=== PATIENT | male | born 1975 | race American Indian/Alaskan Native ===

== ENCOUNTER 2017-01-07 14:58 | Inpatient (IN) | payer MEDICAID ==
[2017-01-08] MEDS ORDERED: VALIUM IV ONE (01:06)
--- NOTE | 2017-01-08 01:06 | Emergency Department Report ---
ED ENT HPI - General Chief complaint: Sore Throat Stated complaint: THROAT PAIN Time Seen by Provider: 01/08/17 01:05 Source: patient Mode of arrival: Ambulatory Limitations: No Limitations - History of Present Illness Initial comments: 41-year-old male past medical history HIV on HAART, pseudo-diverticula esophagus , esophageal strictures presents with complaint of inability to swallow food or liquid for the last 3 days. Patient states this feels like prior episodes of esophageal stricture for which she required endoscopies and dilations of his esophagus. Patient has records of his prior endoscopies on him which he is showing me. Patient denies any nausea no dyspnea denies any chest pain simply states that he cannot tolerate swallowing any liquid or food. Denies any fever or chills and states he has had difficulty swallowing his HIV medicines MD complaint: sore throat Onset/Timin -: days(s) Severity scale (0 -10): 6 Consistency: constant Worsens with: swallowing - Related Data Allergies Allergy/AdvReac Type Severity Reaction Status Date / Time No Known Allergies Allergy Verified 01/07/17 16:11 ED Dental HPI - General Chief complaint: Sore Throat Stated complaint: THROAT PAIN Time Seen by Provider: 01/08/17 01:05 Source: patient Mode of arrival: Ambulatory Limitations: No Limitations - Related Data Allergies Allergy/AdvReac Type Severity Reaction Status Date / Time No Known Allergies Allergy Verified 01/07/17 16:11 ED Review of Systems ROS: Stated complaint: THROAT PAIN Other details as noted in HPI Constitutional: denies: chills, fever Eyes: denies: eye pain, eye discharge, vision change ENT: denies: ear pain, throat pain Respiratory: denies: cough, shortness of breath, wheezing Cardiovascular: denies: chest pain, palpitations Endocrine: no symptoms reported Gastrointestinal: other (esophageal strictures). denies: abdominal pain, nausea , diarrhea Genitourinary: denies: urgency, dysuria Musculoskeletal: denies: back pain, joint swelling, arthralgia Skin: denies: rash, lesions Neurological: denies: headache, weakness, paresthesias Psychiatric: denies: anxiety, depression Hematological/Lymphatic: denies: easy bleeding, easy bruising ED Past Medical Hx - Past Medical History Additional medical history: pseudodiverticulae, esophageal dysphagia - Surgical History Past Surgical History?: No - Social History Smoking Status: Never Smoker Substance Use Type: None ED Physical Exam - General Limitations: No Limitations General appearance: alert, in no apparent distress - Head Head exam: Present: atraumatic, normocephalic - Eye Eye exam: Present: normal appearance - ENT ENT exam: Present: normal exam, normal orophraynx, mucous membranes moist - Neck Neck exam: Present: normal inspection - Respiratory Respiratory exam: Present: normal lung sounds bilaterally. Absent: respiratory distress - Cardiovascular Cardiovascular Exam: Present: regular rate, normal rhythm. Absent: systolic murmur, diastolic murmur, rubs, gallop - GI/Abdominal GI/Abdominal exam: Present: soft, normal bowel sounds - Rectal Rectal exam: Present: deferred - Extremities Exam Extremities exam: Present: normal inspection - Back Exam Back exam: Present: normal inspection - Neurological Exam Neurological exam: Present: alert, oriented X3 - Psychiatric Psychiatric exam: Present: normal affect, normal mood - Skin Skin exam: Present: warm, dry, intact, normal color. Absent: rash ED Course Vital Signs 01/07/17 01/08/17 16:13 00:32 Temperature 98.6 F 98.0 F Pulse Rate 116 H 91 H Respiratory 16 18 Rate Blood Pressure 121/95 Blood Pressure 133/99 [Right] O2 Sat by Pulse 99 100 Oximetry ED Medical Decision Making - Lab Data Result diagrams: 01/08/17 02:09 01/08/17 02:09 - Medical Decision Making A/P: dyphagia 1-case discussed with Dr. Bueno, I called Dr. Navarro of on-call gastroenterology, as patient cannot tolerate by mouth challenge will give IV hydration and admit for urgent endoscopy, case discussed with hospitalist 2-patient understands that we he will be admitted for IV hydration and urgent endoscopy GI to consult 3-Dr. Bueno updated for admission Critical care attestation.: If time is entered above; I have spent that time in minutes in the direct care of this critically ill patient, excluding procedure time. ED Disposition Clinical Impression: Dysphagia Disposition: OP ADMITTED IP TO THIS HOSP Is pt being admited?: Yes Does the pt Need Aspirin: No Condition: Stable Referrals: PRIMARY CARE,MD [Primary Care Provider] - 3-5 Days
[2017-01-08] MEDS ORDERED: LIDOCAINE VISCOUS 2% PO ONE (01:07)
[2017-01-08] MEDS ORDERED: ALUM-MAG HYDROX-SIMETH 200-200-20MG/5ML PO ONE (01:07)
[2017-01-08] MEDS ORDERED: ZOFRAN IV ONE (01:07)
[2017-01-08] MEDS ORDERED: LACTATED RINGERS 1,000 ML IV SCH (02:00)
[2017-01-08 02:22] LABS: Hematocrit 44.4 % (35.5-45.6); Hemoglobin 14.6 gm/dl (11.8-15.2); Mean Corpuscular HGB Conc 33 % (32-34); Mean Corpuscular Hemoglobin 30 pg (28-32); Mean Corpuscular Volume 92 fl (84-94); Platelet Count 199 K/mm3 (140-440); Red Blood Count 4.83 M/mm3 (3.65-5.03); Red Cell Distribution Width 13.7 % (13.2-15.2); White Blood Count 5.4 K/mm3 (4.5-11.0)
[2017-01-08 02:33] LABS: Anion Gap 17 mmol/L; BUN/Creatinine Ratio 13.75; Blood Urea Nitrogen 11 mg/dL (9-20); Calcium 8.4 mg/dL (8.4-10.2); Carbon Dioxide 26 mmol/L (22-30); Glucose 91 mg/dL (75-100); Potassium 3.9 mmol/L (3.6-5.0); Sodium 139 mmol/L (137-145)
[2017-01-08 03:24] LABS: Basophils % (Manual) 0 % (0.0-1.8); Blastocytes % (Manual) 0 %; Diff Status Complete; Platelet Estimate Consistent w Auto; RBC Morphology Normal
[2017-01-08] MEDS ORDERED: D5NS 1,000 ML IV SCH (04:00)
--- NOTE | 2017-01-08 08:08 | History and Physical Report ---
History of Present Illness Date of examination: 01/08/17 Date of admission: 01/08/17 04:10 History of present illness: 41-year-old male past medical history HIV on HAART, pseudo-diverticula esophagus , esophageal strictures presents with complaint of inability to swallow food or liquid for the last 3 days. Patient states this feels like prior episodes of esophageal stricture for which she required endoscopies and dilations of his esophagus. Patient has records of his prior endoscopies on him which he is showing me. Patient denies any nausea no dyspnea denies any chest pain simply states that he cannot tolerate swallowing any liquid or food. Denies any fever or chills and states he has had difficulty swallowing his HIV medicines Past History Past Medical History: GERD, HIV/AIDS Medications and Allergies Allergies Allergy/AdvReac Type Severity Reaction Status Date / Time No Known Allergies Allergy Verified 01/07/17 16:11 Home Medications Medication Instructions Recorded Confirmed Last Taken Type ALPRAZolam [Xanax TAB] 2 mg PO TID PRN 01/08/17 01/08/17 01/07/17 History [place] Carbonate [Eskalith] 200 mg PO DAILY 01/08/17 01/08/17 01/07/17 History QUEtiapine [SEROquel] 200 mg PO DAILY 01/08/17 01/08/17 01/07/17 History Sertraline [Zoloft] 100 mg PO BID 01/08/17 01/08/17 01/07/17 History buPROPion [Wellbutrin] 200 mg PO DAILY 01/08/17 01/08/17 01/07/17 History Active Meds: Active Medications Dextrose/Sodium Chloride (D5ns) 1,000 mls @ 150 mls/hr IV DIRECT MARCIANO Review of Systems Gastrointestinal: nausea, vomiting Exam - Constitutional Vitals: Temp Pulse Resp BP Pulse Ox 98.0 F 74 17 94/56 97 01/08/17 00:32 01/08/17 06:00 01/08/17 06:00 01/08/17 06:00 01/08/17 06:00 General appearance: Present: no acute distress - EENT Eyes: Present: PERRL, EOM intact ENT: hearing intact, clear oral mucosa - Neck Neck: Present: supple, normal ROM - Respiratory Respiratory effort: normal Respiratory: bilateral: CTA - Cardiovascular Rhythm: regular Heart Sounds: Present: S1 & S2 - Abdominal General gastrointestinal: Present: soft, tender, non-distended, normal bowel sounds Localized gastrointestinal: tender: epigastric periumbilical - Musculoskeletal Musculoskeletal: strength equal bilaterally - Psychiatric Psychiatric: appropriate mood/affect, intact judgment & insight - Neurologic Neurologic: CNII-XII intact, moves all extremities Results - Labs CBC & Chem 7: 01/08/17 02:09 01/08/17 02:09 Labs: Laboratory Last Values WBC 5.4 K/mm3 (4.5-11.0) 01/08/17 02:09 RBC 4.83 M/mm3 (3.65-5.03) 01/08/17 02:09 Hgb 14.6 gm/dl (11.8-15.2) 01/08/17 02:09 Hct 44.4 % (35.5-45.6) 01/08/17 02:09 MCV 92 fl (84-94) 01/08/17 02:09 MCH 30 pg (28-32) 01/08/17 02:09 MCHC 33 % (32-34) 01/08/17 02:09 RDW 13.7 % (13.2-15.2) 01/08/17 02:09 Plt Count 199 K/mm3 (140-440) 01/08/17 02:09 [place] % (Auto) [employer] 01/08/17 02:09 Add Manual Diff Complete 01/08/17 02:09 Total Counted 100 01/08/17 02:09 Seg Neuts % (Manual) 46.0 % (40.0-70.0) 01/08/17 02:09 Band Neutrophils % 0 % 01/08/17 02:09 Lymphocytes % (Manual) 32.0 % (13.4-35.0) 01/08/17 02:09 Reactive Lymphs % (Man) 0 % 01/08/17 02:09 Monocytes % (Manual) 19.0 % (0.0-7.3) H 01/08/17 02:09 Eosinophils % (Manual) 3.0 % (0.0-4.3) 01/08/17 02:09 Basophils % (Manual) 0 % (0.0-1.8) 01/08/17 02:09 Metamyelocytes % 0 % 01/08/17 02:09 Myelocytes % 0 % 01/08/17 02:09 Promyelocytes % 0 % 01/08/17 02:09 Blast Cells % 0 % 01/08/17 02:09 Nucleated RBC % Not Reportable 01/08/17 02:09 Seg Neutrophils # Man 2.5 K/mm3 (1.8-7.7) 01/08/17 02:09 Band Neutrophils # 0.0 K/mm3 01/08/17 02:09 Lymphocytes # (Manual) 1.7 K/mm3 (1.2-5.4) 01/08/17 02:09 Abs React Lymphs (Man) 0.0 K/mm3 01/08/17 02:09 Monocytes # (Manual) 1.0 K/mm3 (0.0-0.8) H 01/08/17 02:09 Eosinophils # (Manual) 0.2 K/mm3 (0.0-0.4) 01/08/17 02:09 Basophils # (Manual) 0.0 K/mm3 (0.0-0.1) 01/08/17 02:09 Metamyelocytes # 0.0 K/mm3 01/08/17 02:09 Myelocytes # 0.0 K/mm3 01/08/17 02:09 Promyelocytes # 0.0 K/mm3 01/08/17 02:09 Blast Cells # 0.0 K/mm3 01/08/17 02:09 WBC Morphology Not Reportable 01/08/17 02:09 Hypersegmented Neuts Not Reportable 01/08/17 02:09 Hyposegmented Neuts Not Reportable 01/08/17 02:09 Hypogranular Neuts Not Reportable 01/08/17 02:09 Smudge Cells Not Reportable 01/08/17 02:09 Toxic Granulation Not Reportable 01/08/17 02:09 Toxic Vacuolation Not Reportable 01/08/17 02:09 Dohle Bodies Not Reportable 01/08/17 02:09 Pelger-Huet Anomaly Not Reportable 01/08/17 02:09 Alejandra Rods Not Reportable 01/08/17 02:09 Platelet Estimate Consistent w auto 01/08/17 02:09 Clumped Platelets Not Reportable 01/08/17 02:09 Plt Clumps, EDTA Not Reportable 01/08/17 02:09 Large Platelets Not Reportable 01/08/17 02:09 Giant Platelets Not Reportable 01/08/17 02:09 Platelet Satelliting Not Reportable 01/08/17 02:09 Plt Morphology Comment Not Reportable 01/08/17 02:09 RBC Morphology Normal 01/08/17 02:09 Dimorphic RBCs Not Reportable 01/08/17 02:09 Polychromasia Not Reportable 01/08/17 02:09 Hypochromasia Not Reportable 01/08/17 02:09 Poikilocytosis Not Reportable 01/08/17 02:09 Anisocytosis Not Reportable 01/08/17 02:09 Microcytosis Not Reportable 01/08/17 02:09 Macrocytosis Not Reportable 01/08/17 02:09 Spherocytes Not Reportable 01/08/17 02:09 Pappenheimer Bodies Not Reportable 01/08/17 02:09 Sickle Cells Not Reportable 01/08/17 02:09 Target Cells Not Reportable 01/08/17 02:09 Tear Drop Cells Not Reportable 01/08/17 02:09 Ovalocytes Not Reportable 01/08/17 02:09 Helmet Cells Not Reportable 01/08/17 02:09 [place] Bodies Not Reportable 01/08/17 02:09 [place] Rings Not Reportable 01/08/17 02:09 [place] Cells Not Reportable 01/08/17 02:09 Bite Cells Not Reportable 01/08/17 02:09 Crenated Cell Not Reportable 01/08/17 02:09 Elliptocytes Not Reportable 01/08/17 02:09 Acanthocytes (Spur) Not Reportable 01/08/17 02:09 Rouleaux Not Reportable 01/08/17 02:09 Hemoglobin C Crystals Not Reportable 01/08/17 02:09 Schistocytes Not Reportable 01/08/17 02:09 Malaria parasites Not Reportable 01/08/17 02:09 [place] Bodies Not Reportable 01/08/17 02:09 Hem Pathologist Commnt No 01/08/17 02:09 Sodium 139 mmol/L (137-145) 01/08/17 02:09 Potassium 3.9 mmol/L (3.6-5.0) 01/08/17 02:09 Chloride 100.0 mmol/L (98-107) 01/08/17 02:09 Carbon Dioxide 26 mmol/L (22-30) 01/08/17 02:09 Anion Gap 17 mmol/L 01/08/17 02:09 BUN 11 mg/dL (9-20) 01/08/17 02:09 Creatinine 0.8 mg/dL (0.8-1.5) 01/08/17 02:09 Estimated GFR > 60 ml/min 01/08/17 02:09 BUN/Creatinine Ratio 13.75 % 01/08/17 02:09 Glucose 91 mg/dL (75-100) 01/08/17 02:09 Calcium 8.4 mg/dL (8.4-10.2) 01/08/17 02:09 Assessment and Plan - Patient Problems (1) HIV (human immunodeficiency virus infection) Current Visit: Yes Status: Acute Plan to address problem: We'll get infectious disease consult. (2) Esophageal stricture Current Visit: Yes Status: Acute Plan to address problem: Patient has a history of esophageal strictures when he was in [facility]. Patient has history of dysphagia now. We'll get GI involvement to determine whether the strictures have recurred. (3) Dysphagia Current Visit: Yes Status: Acute Qualifiers: Dysphagia type: D Plan to address problem: Unsure of etiology possibly related to HIV. We'll get GI evaluation to determine whether this is fungal or viral in origin. (4) Nausea & vomiting Current Visit: Yes Status: Acute Qualifiers: Vomiting type: V Vomiting Intractability: V Plan to address problem: Patient was given Zofran and nausea and vomiting is much improved
[2017-01-08] MEDS ORDERED: MILK OF MAGNESIA PO PRN (08:09)
[2017-01-08] MEDS ORDERED: TYLENOL PO PRN (08:09)
[2017-01-08] MEDS ORDERED: DULCOLAX PR PRN (08:09)
[2017-01-08] MEDS ORDERED: NON-FORMULARY (Alprazolam [Xanax Tab] 2 MG) PO PRN (08:11)
[2017-01-08] MEDS ORDERED: ZOFRAN IV PRN (09:00)
[2017-01-08] MEDS ORDERED: XANAX PO PRN (09:00)
[2017-01-08] MEDS ORDERED: ESKALITH PO SCH (10:00)
[2017-01-08] MEDS ORDERED: WELLBUTRIN PO SCH (10:00)
[2017-01-08] MEDS ORDERED: LOVENOX SUB-Q SCH (10:00)
[2017-01-08] MEDS: ZOLOFT PO SCH ×2 (11:30→21:54)
[2017-01-08] MEDS: LOVENOX SUB-Q SCH (11:48)
[2017-01-08] MEDS: D5NS 1,000 ML IV SCH ×2 (11:48→20:23)
[2017-01-08] MEDS: WELLBUTRIN XL PO SCH (14:49)
[2017-01-08] MEDS ORDERED: ATIVAN IV PRN (15:34)
--- NOTE | 2017-01-08 17:44 | Consultation ---
History of Present Illness - Reason for Consult Consult date: 01/08/17 Odynophagia - History of Present Illness See Dictation. Past History Past Medical History: GERD, HIV/AIDS Medications and Allergies Allergies Allergy/AdvReac Type Severity Reaction Status Date / Time No Known Allergies Allergy Verified 01/07/17 16:11 Home Medications Medication Instructions Recorded Confirmed Last Taken Type ALPRAZolam [Xanax TAB] 2 mg PO BID PRN 01/08/17 01/08/17 01/07/17 History [place] Carbonate [Eskalith] 900 mg PO QHS 01/08/17 01/08/17 01/07/17 History QUEtiapine [SEROquel] 800 mg PO BID 01/08/17 01/08/17 01/07/17 History buPROPion [Wellbutrin] 300 mg PO DAILY 01/08/17 01/08/17 01/07/17 History risperiDONE [RisperDAL] 2 mg PO QHS 01/08/17 01/08/17 Unknown History Active Meds: Active Medications Acetaminophen (Tylenol) 650 mg PO Q4H PRN PRN Reason: Pain MILD(1-3)/Fever >100.5/LOERA Alprazolam (Xanax) 2 mg PO BID PRN PRN Reason: Anxiety Bisacodyl (Dulcolax) 10 mg DC QDAY PRN PRN Reason: Constipation unrelieved by MOM Bupropion HCl (Wellbutrin Xl) 300 mg PO DAILY MARCIANO Last Admin: 01/08/17 14:49 Dose: Not Given Enoxaparin Sodium (Lovenox) 40 mg SUB-Q QDAY@1000 MARCIANO Last Admin: 01/08/17 11:48 Dose: 40 mg Dextrose/Sodium Chloride (D5ns) 1,000 mls @ 150 mls/hr IV DIRECT MARCIANO Last Admin: 01/08/17 11:48 Dose: 150 mls/hr Fluconazole (Diflucan) 100 mls @ 100 mls/hr IV ONCE ONE Stop: 01/08/17 18:38 Fluconazole (Diflucan/Ns 100 Mg/50 Ml) 50 mls @ 50 mls/hr IV Q24HR MARCIANO [place] Carbonate (Eskalith) 900 mg PO QHS MARCIANO Lorazepam (Ativan) 1 mg IV Q8HR PRN PRN Reason: Agitation Last Admin: 01/08/17 16:00 Dose: 1 mg Magnesium Hydroxide (Milk Of Magnesia) 30 ml PO Q4H PRN PRN Reason: Constipation Quetiapine Fumarate (Seroquel) 800 mg PO BID MARCIANO Risperidone (Risperdal) 2 mg PO QHS MARCIANO Sertraline HCl (Zoloft) 100 mg PO BID MARCIANO Last Admin: 01/08/17 11:30 Dose: Not Given Exam - Constitutional Vitals: Temp Pulse Resp BP Pulse Ox 98.5 F 74 18 116/77 100 01/08/17 14:45 01/08/17 14:45 01/08/17 14:45 01/08/17 14:45 01/08/17 14:45 Results - Labs CBC & Chem 7: 01/08/17 02:09 01/08/17 02:09 Assessment and Plan Pt with HIV, off meds for several months, per sister, adm with sev day hx of odynophagia and N/V. Spoke with pt's sister. Pt has hx of Jia esophagitis in past with similar symptoms, and a hx of distal esophageal stenosis, last dilated 06/16/16 to 45Fr. - ID consult (pt missed outpt appt with them recently) - empiric Diflucan - EGD in 1-2 days.
[2017-01-08] MEDS: ESKALITH PO SCH (21:53)
[2017-01-08] MEDS: RisperDAL PO SCH (21:54)
[2017-01-08] MEDS ORDERED: DIFLUCAN 200 MG/100 ML BAG IV ONE (22:00)
--- NOTE | 2017-01-09 00:05 | Admit Criteria Form ---
Admission Criteria Documentation: NEUROLOGY GRG Clinical Indications for Admission to Inpatient Care (Place ' X' for any and all applicable criteria): Hospital admission is needed for appropriate care of the patient because of ANY ONE of the following: [ ]I. New-onset or worsening altered mental status remaining after emergency or observation level care (as appropriate) (9)(10)(11) [ ]II. Severe C[employer]ER [employer]IENCE STRATEGIST infections or inflammatory conditions, including ANY ONE of the following(1)(2)(3): [ ]a) Intracranial abscess [ ]b) Spinal abscess or myelitis [ ]c) Tuberculous or other nonbacterial, nonviral CUST[employer]ER [employer]PERIENCE STRATEGIST infection(8) [ ]III. Encephalitis(1)(2)(3) [ ]IV. Status epilepticus or repetitive seizures not controlled with emergent treatment [A] (7)(8) [ ]V. Transient alteration in consciousness with high-risk etiology; examples include (12)(13): [ ]a) Cardiovascular source [ ]b) Cataplexy [ ]. Cerebral aneurysm requiring ANY ONE of the following(14): [ ]a) IV antihypertensives or vasoactive agents [ ]b) Sedation and analgesia for suspected leak [ ]c) Need for external ventricular drainage and cerebral perfusion pressure monitoring [ ]d) Emergent evaluation to determine need for surgical clipping or endovascular coiling by interventional radiology. If surgery is required ( Also use Craniotomy, Supratentorial, for Surgery of Bleeding Intracranial Aneurysm (for bleeding aneurysm) or Craniotomy, Supratentorial (for nonbleeding aneurysm) as appropriate. [ ]VII. Altered mental status that is severe or persistent(16) [ ]VIII New-onset severe neurologic findings requiring inpatient care; examples include: [ ]a) Papilledema [ ]b) Cerebral edema [ ]c) Mass effect on imaging [ ]IX. New-onset severe neurologic symptom requiring inpatient care indicated by ANY ONE of the following: [ ]a) Aphasia(15) [ ]b) Weakness (grade 3 or less) [ ]c) Paralysis (eg, hemiplegia) [ ]d) Spasticity(16) [ ]e) Ataxia(17) [ ]f) Amnesia(18) [ ]g) Involuntary movements(19) [ ]h) Vertigo [ ]i) Other severe neurologic symptom not treatable at alternative level of care (eg, observation care) [ ]X. Guillain-[place] syndrome(20) [ ]XI. Myasthenia gravis crisis or inpatient monitoring need as indicated by ANY ONE of the following(21): [ ]a) Inadequate airway protection [ ]b) Respiratory insufficiency requiring intubation or inpatient. monitoring [ ]c) Progressive dysphagia with failure to thrive [ ]d) Intensive treatment (eg, course of plasmapheresis) with inadequate outpatient situation to monitor patients status [ ]XII. Multiple sclerosis or other acute demyelinating disease requiring inpatient care as indicated by ANY ONE of the following (22)(23): [ ]a) Acute severe deterioration requiring inpatient treatment (eg, IV steroids, plasmapheresis, close observation) [ ]b) Acute complication requiring inpatient care (eg, sepsis, severe decubitus, aspiration) [ ]XIII. Intracranial hypertension (eg, pseudotumor cerebri) requiring inpatient care (eg, acute visual loss, inadequate oral intake) (24) [ ]XIV.Parkinson disease requiring inpatient care (Also use Optimal Recovery Care Criteria or General Recovery Criteria as appropriate) indicated by ANY ONE of the following(25): [ ]a) Infection (eg, aspiration pneumonia) not treatable at alternative level of care [ ]b) Volume depletion not responsive to emergency and observation care treatment (as appropriate) [ ]c) Life-threatening agitation or psychotic behavior not treatable on emergency, observation care, or alternative level (eg, residential) basis [ ]d) Severe medication withdrawal effects (eg, freezing, neuroleptic malignant syndrome) not responsive to emergency and observation care treatment (as appropriate) [ ]e) Other severe manifestation not treatable at alternative level of care [ ]XV.Amyotrophic lateral sclerosis with inpatient care needs as indicated by ANY ONE of the following(26): [ ]a) Acute complications requiring inpatient care (Use Optimal Recovery Care Criteria or General Recovery Criteria as appropriate); examples include: [ ]i) Aspiration pneumonia [ ]ii) Sepsis [ ]b) Dehydration or hypovolemia (not responsive to emergency and observation care treatment as appropriate) AND artificial support desired [ ]c) Inadequate airway protection AND artificial support desired [ ]d) Severe ventilatory insufficiency AND artificial support desired [X ]XVI.Severe myopathy, neuropathy, or other neuromuscular disease as indicated by ANY ONE of the following: [ ]a) New-onset severe diffuse weakness (eg, strength 3/5 or less) [ X]b) Severe dysphagia [ ]c) Dyspnea at rest or with minimal exertion (new) [ ]d) Inadequate airway protection [ ]e) Inadequate ventilation as indicated by ANY ONE of the following : [ ]i) Partial pressure of carbon dioxide greater than 44 mm Hg (5.9 kPa) (new) [ ]ii) Reduced peak expiratory flow rate (new) [ ]iii) Vital capacity less than 50% of predicted ( less than 15 mL/kg) [ ]iv) Peak inspiratory force less negative than -30 cm H20 (-2942 Pa) [ ]XVII.Complications of congenital or degenerative disease (eg, infection, seizures, dehydration, injury) not responsive to emergency and observation care treatment (as appropriate ) [C](16)(29)(30) [ ]XVIII.Suspected or confirmed nerve or muscle toxic injury, including ANY ONE of the following: [ ]a) Rhabdomyolysis(31) [ ]b) Botulism(32) [ ]c) Other severe toxin-induced sign or symptom [ ]XIX. Neurologic trauma requiring inpatient treatment (medical) indicated by ANY ONE of the following(33)(34): [ ]a) Vital signs or neurologic signs more frequently than every 4 hours [ ]b) Hyperosmolar therapy [ ]c) Respiratory monitoring [ ]d) Intracranial pressure monitoring and treatment [ ]e) Stabilization and immobilization device placement (eg, braces, body jacket) [ ]f) Intubation & mechanical ventilation for airway protection or therapeutic hyperventilation [ ]g) Other treatment or monitoring needed that requires inpatient level of care [ ]XX.Complications of neurologic devices (eg, ventricular shunt, neurostimulator) requiring ANY ONE of the following(35)(36): [ ]a) IV antibiotics with monitoring while awaiting culture results [ ]b) Monitoring for hydrocephalus [ ]XXI Vasculitis with ANY ONE of the following(4)(5): [ ]a) Altered mental status [ ]b) Psychosis [ ]c) Seizures [ ]XXII. Neurology condition and ALL of the following: [ ]a) Symptom or finding for which emergency and observation care have failed or are not considered appropriate (Use General Criteria: Observation Care as appropriate) [ ]b) Presence of ANY ONE of the following: [ ]i) A General Admission Criteria [ ]ii A Pediatric General Admission Criteria The original [facility] content created by [facility] has been revised. The portions of the content which have been revised are identified through the use of italic text or in bold, and [facility] has neither reviewed nor approved the modified material. All other unmodified content is copyright [facility] Please see references footnoted in the original [facility] edition 2016 Admission Criteria Met: Yes
[2017-01-09 06:19] LABS: Basophils % (Auto) 0.7 % (0.0-1.8); Eosinophils % (Auto) 3.5 % (0.0-4.3); Hematocrit 40.6 % (35.5-45.6); Hemoglobin 13.2 gm/dl (11.8-15.2); Mean Corpuscular HGB Conc 33 % (32-34); Mean Corpuscular Hemoglobin 30 pg (28-32); Mean Corpuscular Volume 93 fl (84-94); Platelet Count 195 K/mm3 (140-440); Red Blood Count 4.36 M/mm3 (3.65-5.03); Red Cell Distribution Width 13.3 % (13.2-15.2); White Blood Count 5.1 K/mm3 (4.5-11.0)
[2017-01-09 06:36] LABS: Alanine Aminotransferase 18 units/L (7-56); Albumin 3.3 g/dL (3.9-5); Albumin/Globulin Ratio 1.1 %; Alkaline Phosphatase 68 units/L (35-129); Anion Gap 16 mmol/L; BUN/Creatinine Ratio 8.88; Bilirubin,Total 0.4 mg/dL (0.1-1.2); Blood Urea Nitrogen 8 mg/dL (9-20); Carbon Dioxide 23 mmol/L (22-30); Chloride 105.7 mmol/L (98-107); Glucose 99 mg/dL (75-100); Potassium 3.9 mmol/L (3.6-5.0); Sodium 141 mmol/L (137-145); Total Protein 6.2 g/dL (6.3-8.2)
--- NOTE | 2017-01-09 09:18 | Consultation ---
REFERRING PHYSICIAN: Joanna Castillo MD REASON FOR CONSULTATION: Odynophagia. HISTORY OF PRESENT ILLNESS: The patient is a 41-year-old man with significant psychiatric illness as well as HIV positive. He has been off of his HIV medications for several months according to his sister. He has not been able to eat or drink for the last 3-4 days due to pain on swallowing, primarily in his throat. He was having nausea and vomiting on the day prior to admission. Because of this, he came to the Emergency Room and was admitted for management. The patient's sister states that he has had several episodes like this over the last 3 years and gets dilated on a yearly basis. 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 Loving. No Jia esophagitis was noted at that time. The patient denies fevers, chills or sweats. He has been losing weight. He had an appointment to see ID specialists over the last 1 or 2 weeks, but he missed his outpatient appointment. ALLERGIES: He has no known drug allergies. MEDICATIONS: At home, he takes Risperdal, Xanax, Seroquel, Wellbutrin, and lithium. He is not taking his HIV meds. PAST MEDICAL HISTORY: He has a history of: 1. HIV. 2. Schizophrenia. 3. Bipolar disorder. FAMILY HISTORY: Noncontributory. SOCIAL HISTORY: Negative for ethanol usage and he does not smoke. REVIEW OF SYSTEMS: Difficult to obtain as the patient keeps falling asleep in the middle of our conversation, but he denies any significant discomfort. PHYSICAL EXAMINATION: GENERAL: This is a cachectic, middle-aged black male lying in bed, in no apparent distress. VITAL SIGNS: Temperature is 98.5, pulse 74, blood pressure 116/77. HEENT: He is anicteric. Pupils are round and reactive. Oropharynx is clear with a whitish discoloration of the tongue, but no lesions noted on the roof of the mouth. LUNGS: Clear bilaterally. Clear to auscultation. CARDIOVASCULAR: Regular with no extra heart sounds. ABDOMEN: Soft with good bowel sounds and no organomegaly or tenderness to palpation. RECTAL: Deferred. EXTREMITIES: Reveal no edema. NEUROLOGIC: He is alert and oriented x3. Grossly nonfocal. LABORATORY DATA: White count is 5.4, hemoglobin 14.6, hematocrit 44.4, MCV of 92, platelet count of 199,000. Sodium is 139, potassium 2.9, chloride 100, bicarb 26, BUN 11, creatinine 0.8, glucose 91. IMPRESSION: 1. Odynophagia - this could well represent Jia. Based on patient's history, and the fact that he is HIV positive and has been off medications, I will empirically start him on Diflucan. We will plan on an upper endoscopy in the next several days. At that time, we will likely need to dilate him given his history of distal esophageal stenosis. 2. HIV positive - off medications. I would recommend Infectious Disease consultation. JOB# [id number] HRC/NTS
[2017-01-09] MEDS ORDERED: DIFLUCAN/NS 100 MG/50 ML 100 MG/50 ML BAG IV SCH (10:00)
--- NOTE | 2017-01-09 10:11 | Progress Note ---
Assessment and Plan Assessment and plan: 1. Odynophagia. GI following. Plans for upper endoscopy in 1-2 days. Continue Diflucan. Pt has hx of Jia esophagitis in past with similar symptoms, and a hx of distal esophageal stenosis, last dilated 06/16/16. 2. HIV. ID consultation pending. History Interval history: 41-year-old male past medical history HIV on HAART, pseudo-diverticula esophagus , esophageal strictures presents with complaint of inability to swallow food or liquid for the last 3 days. Hospitalist Physical - Constitutional Vitals: Temp Pulse Resp BP Pulse Ox 98.9 F 75 18 101/64 96 01/09/17 07:00 01/09/17 07:00 01/09/17 07:00 01/09/17 07:00 01/09/17 07:00 General appearance: Present: no acute distress - EENT Eyes: Present: PERRL, EOM intact ENT: hearing intact, clear oral mucosa, dentition normal - Neck Neck: Present: supple, normal ROM - Respiratory Respiratory effort: normal Respiratory: bilateral: CTA - Cardiovascular Rhythm: regular Heart Sounds: Present: S1 & S2. Absent: gallop, rub - Extremities Extremities: no ischemia, No edema, Full ROM - Abdominal General gastrointestinal: soft, non-tender, non-distended, normal bowel sounds - Integumentary Integumentary: Present: clear, warm, dry - Neurologic Neurologic: CNII-XII intact, moves all extremities Results - Labs CBC & Chem 7: 01/09/17 05:09 01/09/17 05:09 Labs: Laboratory Last Values WBC 5.1 K/mm3 (4.5-11.0) 01/09/17 05:09 RBC 4.36 M/mm3 (3.65-5.03) 01/09/17 05:09 Hgb 13.2 gm/dl (11.8-15.2) 01/09/17 05:09 Hct 40.6 % (35.5-45.6) 01/09/17 05:09 MCV 93 fl (84-94) 01/09/17 05:09 MCH 30 pg (28-32) 01/09/17 05:09 MCHC 33 % (32-34) 01/09/17 05:09 RDW 13.3 % (13.2-15.2) 01/09/17 05:09 Plt Count 195 K/mm3 (140-440) 01/09/17 05:09 Lymph % (Auto) 30.4 % (13.4-35.0) 01/09/17 05:09 [place] % (Auto) 13.6 % (0.0-7.3) H 01/09/17 05:09 Eos % (Auto) 3.5 % (0.0-4.3) 01/09/17 05:09 Baso % (Auto) 0.7 % (0.0-1.8) 01/09/17 05:09 Lymph # 1.5 K/mm3 (1.2-5.4) 01/09/17 05:09 [place] # 0.7 K/mm3 (0.0-0.8) 01/09/17 05:09 Eos # 0.2 K/mm3 (0.0-0.4) 01/09/17 05:09 Baso # 0.0 K/mm3 (0.0-0.1) 01/09/17 05:09 Add Manual Diff Complete 01/08/17 02:09 Total Counted 100 01/08/17 02:09 Seg Neutrophils % 51.8 % (40.0-70.0) 01/09/17 05:09 Seg Neuts % (Manual) 46.0 % (40.0-70.0) 01/08/17 02:09 Band Neutrophils % 0 % 01/08/17 02:09 Lymphocytes % (Manual) 32.0 % (13.4-35.0) 01/08/17 02:09 Reactive Lymphs % (Man) 0 % 01/08/17 02:09 Monocytes % (Manual) 19.0 % (0.0-7.3) H 01/08/17 02:09 Eosinophils % (Manual) 3.0 % (0.0-4.3) 01/08/17 02:09 Basophils % (Manual) 0 % (0.0-1.8) 01/08/17 02:09 Metamyelocytes % 0 % 01/08/17 02:09 Myelocytes % 0 % 01/08/17 02:09 Promyelocytes % 0 % 01/08/17 02:09 Blast Cells % 0 % 01/08/17 02:09 Nucleated RBC % Not Reportable 01/08/17 02:09 Seg Neutrophils # 2.6 K/mm3 (1.8-7.7) 01/09/17 05:09 Seg Neutrophils # Man 2.5 K/mm3 (1.8-7.7) 01/08/17 02:09 Band Neutrophils # 0.0 K/mm3 01/08/17 02:09 Lymphocytes # (Manual) 1.7 K/mm3 (1.2-5.4) 01/08/17 02:09 Abs React Lymphs (Man) 0.0 K/mm3 01/08/17 02:09 Monocytes # (Manual) 1.0 K/mm3 (0.0-0.8) H 01/08/17 02:09 Eosinophils # (Manual) 0.2 K/mm3 (0.0-0.4) 01/08/17 02:09 Basophils # (Manual) 0.0 K/mm3 (0.0-0.1) 01/08/17 02:09 Metamyelocytes # 0.0 K/mm3 01/08/17 02:09 Myelocytes # 0.0 K/mm3 01/08/17 02:09 Promyelocytes # 0.0 K/mm3 01/08/17 02:09 Blast Cells # 0.0 K/mm3 01/08/17 02:09 WBC Morphology Not Reportable 01/08/17 02:09 Hypersegmented Neuts Not Reportable 01/08/17 02:09 Hyposegmented Neuts Not Reportable 01/08/17 02:09 Hypogranular Neuts Not Reportable 01/08/17 02:09 Smudge Cells Not Reportable 01/08/17 02:09 Toxic Granulation Not Reportable 01/08/17 02:09 Toxic Vacuolation Not Reportable 01/08/17 02:09 Dohle Bodies Not Reportable 01/08/17 02:09 Pelger-Huet Anomaly Not Reportable 01/08/17 02:09 Laejandra Rods Not Reportable 01/08/17 02:09 Platelet Estimate Consistent w auto 01/08/17 02:09 Clumped Platelets Not Reportable 01/08/17 02:09 Plt Clumps, EDTA Not Reportable 01/08/17 02:09 Large Platelets Not Reportable 01/08/17 02:09 Giant Platelets Not Reportable 01/08/17 02:09 Platelet Satelliting Not Reportable 01/08/17 02:09 Plt Morphology Comment Not Reportable 01/08/17 02:09 RBC Morphology Normal 01/08/17 02:09 Dimorphic RBCs Not Reportable 01/08/17 02:09 Polychromasia Not Reportable 01/08/17 02:09 Hypochromasia Not Reportable 01/08/17 02:09 Poikilocytosis Not Reportable 01/08/17 02:09 Anisocytosis Not Reportable 01/08/17 02:09 Microcytosis Not Reportable 01/08/17 02:09 Macrocytosis Not Reportable 01/08/17 02:09 Spherocytes Not Reportable 01/08/17 02:09 Pappenheimer Bodies Not Reportable 01/08/17 02:09 Sickle Cells Not Reportable 01/08/17 02:09 Target Cells Not Reportable 01/08/17 02:09 Tear Drop Cells Not Reportable 01/08/17 02:09 Ovalocytes Not Reportable 01/08/17 02:09 Helmet Cells Not Reportable 01/08/17 02:09 Fu-[place] Bodies Not Reportable 01/08/17 02:09 [place] Rings Not Reportable 01/08/17 02:09 [place] Cells Not Reportable 01/08/17 02:09 Bite Cells Not Reportable 01/08/17 02:09 Crenated Cell Not Reportable 01/08/17 02:09 Elliptocytes Not Reportable 01/08/17 02:09 Acanthocytes (Spur) Not Reportable 01/08/17 02:09 Rouleaux Not Reportable 01/08/17 02:09 Hemoglobin C Crystals Not Reportable 01/08/17 02:09 Schistocytes Not Reportable 01/08/17 02:09 Malaria parasites Not Reportable 01/08/17 02:09 Allen Bodies Not Reportable 01/08/17 02:09 Hem Pathologist Commnt No 01/08/17 02:09 Sodium 141 mmol/L (137-145) 01/09/17 05:09 Potassium 3.9 mmol/L (3.6-5.0) 01/09/17 05:09 Chloride 105.7 mmol/L (98-107) 01/09/17 05:09 Carbon Dioxide 23 mmol/L (22-30) 01/09/17 05:09 Anion Gap 16 mmol/L 01/09/17 05:09 BUN 8 mg/dL (9-20) L 01/09/17 05:09 Creatinine 0.9 mg/dL (0.8-1.5) 01/09/17 05:09 Estimated GFR > 60 ml/min 01/09/17 05:09 BUN/Creatinine Ratio 8.88 % 01/09/17 05:09 Glucose 99 mg/dL (75-100) 01/09/17 05:09 Calcium 8.0 mg/dL (8.4-10.2) L 01/09/17 05:09 Total Bilirubin 0.4 mg/dL (0.1-1.2) 01/09/17 05:09 AST 21 units/L (5-40) 01/09/17 05:09 ALT 18 units/L (7-56) 01/09/17 05:09 Alkaline Phosphatase 68 units/L (35-129) 01/09/17 05:09 Total Protein 6.2 g/dL (6.3-8.2) L 01/09/17 05:09 Albumin 3.3 g/dL (3.9-5) L 01/09/17 05:09 Albumin/Globulin Ratio 1.1 % 01/09/17 05:09
[2017-01-09] MEDS: WELLBUTRIN XL PO SCH (10:45)
[2017-01-09] MEDS: XANAX PO PRN (10:45)
[2017-01-09] MEDS: ZOLOFT PO SCH ×2 (10:45→21:00)
[2017-01-09] MEDS: LOVENOX SUB-Q SCH (10:45)
--- NOTE | 2017-01-09 14:52 | Consultation ---
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 He describes intermittent follow with last clinic visit approximate 2 years ago in [facility]. The patient had most recently been on HAART Rxs to include Prezista, Truvada and Norvir - but he admits to poor compliance. He is unaware of his HIV viral load or T-cell counts. He was told that he would need a new "cocktail". The patient has a known documented history of jia esophagitis. He presents for admission to now with a 3 day history of dysphagia and inability to take in liquids or solids. Mr Rainey describes frequent episodes of jia esophagitis. He has had serial endoscopies over the last 13 years time. His records show a diagnosis of previous distal esophageal stenosis ( see GI evaluation). The patient's last dilatation was 06/16/16 ( records are not available to me now). His symptoms now are similar to symptoms in the past. He denies any other history of opportunistic infection and has never been told that he had any other etiology for his esophagitis other than yeast. He does describe a 20 pound weight loss but states that this has all occurred in the last 2 days. He is unaware of any fever or chills. He denies headache, blurred vision, cough , shortness of breath, abdominal pain, nausea, diarrhea, dysuria, urethral discharge, muscle or joint pain. He denies any other risk factors for HIV. He denies a history of STD, TB or hepatitis. Currently the patient is on Diflucan 100 mg IV daily Past History Past Medical History: GERD, HIV/AIDS Medications and Allergies Allergies Allergy/AdvReac Type Severity Reaction Status Date / Time No Known Allergies Allergy Verified 01/07/17 16:11 Home Medications Medication Instructions Recorded Confirmed Last Taken Type ALPRAZolam [Xanax TAB] 2 mg PO BID PRN 01/08/17 01/08/17 01/07/17 History [place] Carbonate [Eskalith] 900 mg PO QHS 01/08/17 01/08/17 01/07/17 History QUEtiapine [SEROquel] 800 mg PO BID 01/08/17 01/08/17 01/07/17 History buPROPion [Wellbutrin] 300 mg PO DAILY 01/08/17 01/08/17 01/07/17 History risperiDONE [RisperDAL] 2 mg PO QHS 01/08/17 01/08/17 Unknown History Active Meds: Active Medications Acetaminophen (Tylenol) 650 mg PO Q4H PRN PRN Reason: Pain MILD(1-3)/Fever >100.5/LOERA Alprazolam (Xanax) 2 mg PO BID PRN PRN Reason: Anxiety Last Admin: 01/09/17 10:45 Dose: 2 mg Bisacodyl (Dulcolax) 10 mg HI QDAY PRN PRN Reason: Constipation unrelieved by MOM Bupropion HCl (Wellbutrin Xl) 300 mg PO DAILY [facility] Last Admin: 01/09/17 10:45 Dose: 300 mg Enoxaparin Sodium (Lovenox) 40 mg SUB-Q QDAY@1000 MARCIANO Last Admin: 01/09/17 10:45 Dose: 40 mg Dextrose/Sodium Chloride (D5ns) 1,000 mls @ 150 mls/hr IV DIRECT [facility] Last Admin: 01/08/17 20:23 Dose: 150 mls/hr Fluconazole (Diflucan/Ns 100 Mg/50 Ml) 100 mg in 50 mls @ 50 mls/hr IV Q24HR [facility] Last Admin: 01/09/17 10:45 Dose: 50 mls/hr [place] Carbonate (Eskalith) 900 mg PO QHS [facility] Last Admin: 01/08/17 21:53 Dose: 900 mg Lorazepam (Ativan) 1 mg IV Q8HR PRN PRN Reason: Agitation Last Admin: 01/08/17 16:00 Dose: 1 mg Magnesium Hydroxide (Milk Of Magnesia) 30 ml PO Q4H PRN PRN Reason: Constipation Quetiapine Fumarate (Seroquel) 800 mg PO BID [facility] Risperidone (Risperdal) 2 mg PO QHS [facility] Last Admin: 01/08/17 21:54 Dose: 2 mg Sertraline HCl (Zoloft) 100 mg PO BID [facility] Last Admin: 01/09/17 10:45 Dose: 100 mg Review of Systems Constitutional: weight loss Physical Examination - Physical Exam Narrative exam: Thin male. Otherwise well-developed and well-nourished appearing. HEENT: Pupils are equal reactive to light and accommodation. Conjunctiva clear. Oropharynx is normal with no evidence of oral candidiasis or pharyngitis. NECK: Supple. No enlargement of the thyroid gland. No significant cervical lymphadenopathy. No jugular venous distention at 30. LUNGS: Clear with no adventitious sounds. HEART: Regular rate. S1 and S2 are normal. There are no murmurs, gallops, clicks or rubs heard. ABDOMEN: Soft and nontender. Liver and spleen are not palpably enlarged or tender. No palpable masses. Bowel sounds are normoactive. EXTREMITIES: No rash, peripheral lymphadenopathy, clubbing or edema. SKIN: No other rash, ulcers or wounds. NEUROLOGIC: No focal findings. 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 He describes intermittent follow with last clinic visit approximate 2 years ago in [facility]. The patient had most recently been on HAART Rxs to include Prezista, Truvada and Norvir - but he admits to poor compliance. He is unaware of his HIV viral load or T-cell counts. He was told that he would need a new "cocktail". The patient has a known documented history of jia esophagitis. He presents for admission to now with a 3 day history of dysphagia and inability to take in liquids or solids. Antibiotics: Fluconazole 100 mg IV daily (2/12 -> HAART/ prophylactic therapies None recently Previous HIV Rx: Prezista Truvada Norvir Conclusions: 1. HIV/AIDS -R/O Jia esophagitis - recurrent - Hx? Weight loss - Non compliant on therapy - CD4 count, HIV viral load unknown 2. Dysphasia - R/O recurrent yeast versus other etiologies to include CMV, herpes, [place]ISE, [place], CVA/Lymphoma 3. GERD Recommendations: - Will increase fluconazole therapy to 400 mg daily - Await follow-up GED - Patient will require further HIV studies to include genotype, STI evaluation, TB assay, hepatitis profile, CD4 count and HIV viral load. These would be best performed in an outpatient setting. The patient will need to demonstrate compliance otherwise to be restarted on HAART. - Suspect though that the patient probably has low T-cell count to allow for recurrent jia infection.
[2017-01-09] MEDS: NON-FORMULARY PO SCH ×3 (15:00→21:00)
[2017-01-09] MEDS: DIFLUCAN 200 ML IV SCH (17:09)
--- NOTE | 2017-01-09 17:33 | Progress Note ---
Assessment and Plan 1. Odynophagia - likely due to recurrent Jia esophagitis. Empirically on IV Diflucan. - Will do EGD tomorrow, with possible dilation 2. Hx esophageal stenosis - EGD/possible dilation tomorrow. 3. HIV - per ID. Subjective Date of service: 01/09/17 Interval history: Pt states he is able to swallow liquids, not solids. ID consult noted. Objective - Constitutional Vitals: Vital Signs - 12hr 01/09/17 07:00 Temperature 98.9 F Pulse Rate [ 75 Right Radial] Respiratory 18 Rate Blood Pressure 101/64 [Left Arm] O2 Sat by Pulse 96 Oximetry General appearance: Present: no acute distress - EENT Eyes: PERRL, EOM intact ENT: hearing intact - Respiratory Respiratory effort: normal - Gastrointestinal General gastrointestinal: Present: soft, non-tender - Labs CBC & Chem 7: 01/09/17 05:09 01/09/17 05:09 Labs: Abnormal lab results 01/09/17 01/09/17 Range/Units 05:09 05:09 [place] % (Auto) 13.6 H (0.0-7.3) % BUN 8 L (9-20) mg/dL Calcium 8.0 L (8.4-10.2) mg/dL Total Protein 6.2 L (6.3-8.2) g/dL Albumin 3.3 L (3.9-5) g/dL
[2017-01-09] MEDS: ESKALITH PO SCH (21:00)
[2017-01-09] MEDS: RisperDAL PO SCH (21:00)
[2017-01-10] MEDS: D5NS 1,000 ML IV SCH (04:33)
--- NOTE | 2017-01-10 09:17 | Progress Note ---
Assessment and Plan Assessment and plan: 1. Odynophagia/dysphagia. GI following. Plans for upper endoscopy in 1-2 days. Continue Diflucan. Pt has hx of Jia esophagitis in past with similar symptoms, and a hx of distal esophageal stenosis, last dilated 06/16/16. ID started the patient on fluconazole 400 mg daily. 2. HIV. ID following. Patient will require further HIV studies to include genotype, STI evaluation, TB assay, hepatitis profile, CD4 count and HIV viral load. These would be best performed in an outpatient setting. The patient will need to demonstrate compliance otherwise to be restarted on HAART. 3. GERD. Continue PPI. History Interval history: 41-year-old male past medical history HIV on HAART, pseudo-diverticula esophagus , esophageal strictures presents with complaint of inability to swallow food or liquid for the last 3 days prior to admission. No new complaints currently Hospitalist Physical - Constitutional Vitals: Temp Pulse Resp BP Pulse Ox 98.4 F 83 18 101/70 100 01/10/17 00:57 01/10/17 00:57 01/10/17 00:57 01/10/17 00:57 01/10/17 00:57 General appearance: Present: no acute distress - EENT Eyes: Present: PERRL, EOM intact ENT: hearing intact, clear oral mucosa, dentition normal - Neck Neck: Present: supple, normal ROM - Respiratory Respiratory effort: normal Respiratory: bilateral: CTA - Cardiovascular Rhythm: regular Heart Sounds: Present: S1 & S2. Absent: gallop, rub - Extremities Extremities: no ischemia, No edema, Full ROM - Abdominal General gastrointestinal: soft, non-tender, non-distended, normal bowel sounds - Integumentary Integumentary: Present: clear, warm, dry - Neurologic Neurologic: CNII-XII intact, moves all extremities Results - Labs CBC & Chem 7: 01/09/17 05:09 01/09/17 05:09 Labs: Laboratory Last Values WBC 5.1 K/mm3 (4.5-11.0) 01/09/17 05:09 RBC 4.36 M/mm3 (3.65-5.03) 01/09/17 05:09 Hgb 13.2 gm/dl (11.8-15.2) 01/09/17 05:09 Hct 40.6 % (35.5-45.6) 01/09/17 05:09 MCV 93 fl (84-94) 01/09/17 05:09 MCH 30 pg (28-32) 01/09/17 05:09 MCHC 33 % (32-34) 01/09/17 05:09 RDW 13.3 % (13.2-15.2) 01/09/17 05:09 Plt Count 195 K/mm3 (140-440) 01/09/17 05:09 Lymph % (Auto) 30.4 % (13.4-35.0) 01/09/17 05:09 [place] % (Auto) 13.6 % (0.0-7.3) H 01/09/17 05:09 Eos % (Auto) 3.5 % (0.0-4.3) 01/09/17 05:09 Baso % (Auto) 0.7 % (0.0-1.8) 01/09/17 05:09 Lymph # 1.5 K/mm3 (1.2-5.4) 01/09/17 05:09 [place] # 0.7 K/mm3 (0.0-0.8) 01/09/17 05:09 Eos # 0.2 K/mm3 (0.0-0.4) 01/09/17 05:09 Baso # 0.0 K/mm3 (0.0-0.1) 01/09/17 05:09 Add Manual Diff Complete 01/08/17 02:09 Total Counted 100 01/08/17 02:09 Seg Neutrophils % 51.8 % (40.0-70.0) 01/09/17 05:09 Seg Neuts % (Manual) 46.0 % (40.0-70.0) 01/08/17 02:09 Band Neutrophils % 0 % 01/08/17 02:09 Lymphocytes % (Manual) 32.0 % (13.4-35.0) 01/08/17 02:09 Reactive Lymphs % (Man) 0 % 01/08/17 02:09 Monocytes % (Manual) 19.0 % (0.0-7.3) H 01/08/17 02:09 Eosinophils % (Manual) 3.0 % (0.0-4.3) 01/08/17 02:09 Basophils % (Manual) 0 % (0.0-1.8) 01/08/17 02:09 Metamyelocytes % 0 % 01/08/17 02:09 Myelocytes % 0 % 01/08/17 02:09 Promyelocytes % 0 % 01/08/17 02:09 Blast Cells % 0 % 01/08/17 02:09 Nucleated RBC % Not Reportable 01/08/17 02:09 Seg Neutrophils # 2.6 K/mm3 (1.8-7.7) 01/09/17 05:09 Seg Neutrophils # Man 2.5 K/mm3 (1.8-7.7) 01/08/17 02:09 Band Neutrophils # 0.0 K/mm3 01/08/17 02:09 Lymphocytes # (Manual) 1.7 K/mm3 (1.2-5.4) 01/08/17 02:09 Abs React Lymphs (Man) 0.0 K/mm3 01/08/17 02:09 Monocytes # (Manual) 1.0 K/mm3 (0.0-0.8) H 01/08/17 02:09 Eosinophils # (Manual) 0.2 K/mm3 (0.0-0.4) 01/08/17 02:09 Basophils # (Manual) 0.0 K/mm3 (0.0-0.1) 01/08/17 02:09 Metamyelocytes # 0.0 K/mm3 01/08/17 02:09 Myelocytes # 0.0 K/mm3 01/08/17 02:09 Promyelocytes # 0.0 K/mm3 01/08/17 02:09 Blast Cells # 0.0 K/mm3 01/08/17 02:09 WBC Morphology Not Reportable 01/08/17 02:09 Hypersegmented Neuts Not Reportable 01/08/17 02:09 Hyposegmented Neuts Not Reportable 01/08/17 02:09 Hypogranular Neuts Not Reportable 01/08/17 02:09 Smudge Cells Not Reportable 01/08/17 02:09 Toxic Granulation Not Reportable 01/08/17 02:09 Toxic Vacuolation Not Reportable 01/08/17 02:09 Dohle Bodies Not Reportable 01/08/17 02:09 Pelger-Huet Anomaly Not Reportable 01/08/17 02:09 Alejandra Rods Not Reportable 01/08/17 02:09 Platelet Estimate Consistent w auto 01/08/17 02:09 Clumped Platelets Not Reportable 01/08/17 02:09 Plt Clumps, EDTA Not Reportable 01/08/17 02:09 Large Platelets Not Reportable 01/08/17 02:09 Giant Platelets Not Reportable 01/08/17 02:09 Platelet Satelliting Not Reportable 01/08/17 02:09 Plt Morphology Comment Not Reportable 01/08/17 02:09 RBC Morphology Normal 01/08/17 02:09 Dimorphic RBCs Not Reportable 01/08/17 02:09 Polychromasia Not Reportable 01/08/17 02:09 Hypochromasia Not Reportable 01/08/17 02:09 Poikilocytosis Not Reportable 01/08/17 02:09 Anisocytosis Not Reportable 01/08/17 02:09 Microcytosis Not Reportable 01/08/17 02:09 Macrocytosis Not Reportable 01/08/17 02:09 Spherocytes Not Reportable 01/08/17 02:09 Pappenheimer Bodies Not Reportable 01/08/17 02:09 Sickle Cells Not Reportable 01/08/17 02:09 Target Cells Not Reportable 01/08/17 02:09 Tear Drop Cells Not Reportable 01/08/17 02:09 Ovalocytes Not Reportable 01/08/17 02:09 Helmet Cells Not Reportable 01/08/17 02:09 Fu-[place] Bodies Not Reportable 01/08/17 02:09 [place] Rings Not Reportable 01/08/17 02:09 [place]reea Cells Not Reportable 01/08/17 02:09 Bite Cells Not Reportable 01/08/17 02:09 Crenated Cell Not Reportable 01/08/17 02:09 Elliptocytes Not Reportable 01/08/17 02:09 Acanthocytes (Spur) Not Reportable 01/08/17 02:09 Rouleaux Not Reportable 01/08/17 02:09 Hemoglobin C Crystals Not Reportable 01/08/17 02:09 Schistocytes Not Reportable 01/08/17 02:09 Malaria parasites Not Reportable 01/08/17 02:09 Allen Bodies Not Reportable 01/08/17 02:09 Hem Pathologist Commnt No 01/08/17 02:09 Sodium 141 mmol/L (137-145) 01/09/17 05:09 Potassium 3.9 mmol/L (3.6-5.0) 01/09/17 05:09 Chloride 105.7 mmol/L (98-107) 01/09/17 05:09 Carbon Dioxide 23 mmol/L (22-30) 01/09/17 05:09 Anion Gap 16 mmol/L 01/09/17 05:09 BUN 8 mg/dL (9-20) L 01/09/17 05:09 Creatinine 0.9 mg/dL (0.8-1.5) 01/09/17 05:09 Estimated GFR > 60 ml/min 01/09/17 05:09 BUN/Creatinine Ratio 8.88 % 01/09/17 05:09 Glucose 99 mg/dL (75-100) 01/09/17 05:09 Calcium 8.0 mg/dL (8.4-10.2) L 01/09/17 05:09 Total Bilirubin 0.4 mg/dL (0.1-1.2) 01/09/17 05:09 AST 21 units/L (5-40) 01/09/17 05:09 ALT 18 units/L (7-56) 01/09/17 05:09 Alkaline Phosphatase 68 units/L (35-129) 01/09/17 05:09 Total Protein 6.2 g/dL (6.3-8.2) L 01/09/17 05:09 Albumin 3.3 g/dL (3.9-5) L 01/09/17 05:09 Albumin/Globulin Ratio 1.1 % 01/09/17 05:09
[2017-01-10] MEDS: WELLBUTRIN XL PO SCH (09:56)
[2017-01-10] MEDS: ZOLOFT PO SCH ×2 (09:56→23:14)
[2017-01-10] MEDS: NON-FORMULARY PO SCH ×2 (09:57→23:11)
[2017-01-10] MEDS: LOVENOX SUB-Q SCH (09:59)
[2017-01-10] MEDS: DIFLUCAN 200 ML IV SCH (10:50)
--- NOTE | 2017-01-10 11:29 | Progress Note ---
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 He describes intermittent follow with last clinic visit approximate 2 years ago in [facility]. The patient had most recently been on HAART Rxs to include Prezista, Truvada and Norvir - but he admits to poor compliance. He is unaware of his HIV viral load or T-cell counts. He was told that he would need a new "cocktail". The patient has a known documented history of george esophagitis. He presents for admission to now with a 3 day history of dysphagia and inability to take in liquids or solids. Problem list: 1. HIV/AIDS -R/O George esophagitis - recurrent -Rule out esophageal ulcers. etc. - Hx? Weight loss - Non compliant on therapy - CD4 count, HIV viral load unknown 2. Dysphasia - R/O recurrent george esophagitis versus other etiologies to include CMV, herpes, [place], [place], CVA/Lymphoma 3. GERD PLAN: 1. Will continue fluconazole therapy to 400 mg daily 2. Await follow-up upper endoscopy 3. Will obtain CD4, HIV viral load and HIV genotype to facilitate reinitiation of ARVs as an out patient 4. Other screening studies will be obtained as an outpatient 5. Continued supportive measures. Jagdish Austin MD [facility] Office: [phone] Subjective Date of service: 01/10/17 Principal diagnosis: + HIV, dysphagia Interval history: No new complaints. Still with some difficulty swallowing. ROS: No subjective fever or chills. No nausea, vomiting or diarrhea. No shortness of breath, cough or pleuritic chest pain Objective - Exam Narrative Exam: GENERAL: Well-developed, thin male who is alert and in no acute distress. HEENT: Pupils are equal reactive to light and accommodation. Conjunctiva clear. Oropharynx is normal with no evidence of oral candidiasis or pharyngitis. No mucosal ulcers seen. NECK: Supple. No enlargement of the thyroid gland. No significant cervical lymphadenopathy. No jugular venous distention at 30. LUNGS: Clear with no adventitious sounds. HEART: Regular rate. S1 and S2 are normal. There are no murmurs, gallops, clicks or rubs heard. ABDOMEN: Soft and nontender. Liver and spleen are not palpably enlarged or tender. No palpable masses. Bowel sounds are normoactive. EXTREMITIES: No rash, peripheral lymphadenopathy, clubbing or edema. SKIN: No other rash, ulcers or wounds. NEUROLOGIC: No focal findings. - Constitutional Vitals: Vital Signs Temp Pulse Resp BP Pulse Ox 97.4 F L 64 16 111/69 98 01/10/17 08:00 01/10/17 08:00 01/10/17 08:00 01/10/17 08:00 01/10/17 08:00 Temperature -Last 24 Hours Temperature 97.4 F Temperature 98.4 F Temperature 97.7 F - Labs CBC & Chem 7: 01/09/17 05:09 01/09/17 05:09 Labs: CD4 and viral load pending
[2017-01-10] MEDS ORDERED: WATER FOR IRRIG STERILE IR ONE (12:22)
[2017-01-10] MEDS ORDERED: NACL 0.9% 1000 ML 1,000 ML IV SCH (13:00)
[2017-01-10] MEDS ORDERED: DIPRIVAN 10 MG/ML IV ONE ×2 (13:44)
--- NOTE | 2017-01-10 14:13 | Post Operative Note ---
Pre-op diagnosis: Odynophagia Post-op diagnosis: same (and r/o jia esophagitis/CMV/Herpes) Findings: EGD Esophagus: White plaques in mid-esophagus, most c/w Jia. Few superficial ulcerations, but not entirely classic for herpes or CMV. Biopsies taken from plaques and superficial ulcerations and sent for analysis for Jia/HSV/CMV. Stomach/duodenum: normal Imp: odynophagia, most likely due to Jia esophagitis. Plan: 1) Cont Diflucan as per ID 2) Await path and special stains for HSV and CMV 3) Diet as tolerated No further inpatient GI w/u planned. Please re-call with questions. Thank you! Procedure: EGD Anesthesia: MAC Surgeon: RAMAKRISHNA IGLESIAS Estimated blood loss: minimal Pathology: list (esophagus) Specimen disposition: to lab Condition: stable Disposition: floor
--- NOTE | 2017-01-10 14:41 | Post Anesthesia Evaluation ---
- Post Anesthesia Evaluation Patient Participated: Yes Airway Patent: Yes Stable Respiratory Function: Yes Nausea/Vomiting: No Temp > 96.8F: Yes Pain Manageable: Yes Adequeate Hydration: Yes Anesthesia Complications: No Block Receding Appropriately: Not Applicable Patient on Ventilator: No
--- NOTE | 2017-01-10 14:44 | Anesthesia Day of Surgery ---
Anesthesia Day of Surgery - Day of Surgery Patient Examined: Yes Patient H&P Reviewed: Yes Patient is NPO: Yes
--- NOTE | 2017-01-10 14:44 | Anesthesia Consultation ---
Anesthesia Consult and Med Hx Date of service: 01/10/17 - Airway Anesthetic Teeth Evaluation: Poor ROM Head & Neck: Adequate Mental/Hyoid Distance: Adequate Mallampati Class: Class II Intubation Access Assessment: Probably Good - Pulmonary Exam CTA: Yes - Cardiac Exam Cardiac Exam: RRR - Pre-Operative Health Status ASA Pre-Surgery Classification: ASA3 Proposed Anesthetic Plan: MAC - Pulmonary Hx Asthma: No COPD: No Hx Pneumonia: No - Cardiovascular System Hx Hypertension: No Hx Coronary Artery Disease: No - Central Nervous System Hx Psychiatric Problems: Yes - Gastrointestinal Hx Gastroesophageal Reflux Disease: Yes - Endocrine Hx End Stage Renal Disease: No - Additional Comments Anesthesia Medical History Comments: HIV+
--- NOTE | 2017-01-10 18:47 | Operative Report ---
UPPER ENDOSCOPY REPORT PROCEDURE PERFORMED: Upper endoscopy with biopsy. PREOPERATIVE DIAGNOSES: Odynophagia, history of HIV. POSTOPERATIVE DIAGNOSES: Odynophagia, history of HIV, Jia esophagitis. ANESTHESIA: Via monitored anesthesia care. DESCRIPTION OF PROCEDURE: After informed consent was obtained from the patient's sister, the patient was placed in the left lateral decubitus position. Standard Fujinon upper endoscope was inserted into the mouth and advanced to the second portion of duodenum. Scope was then carefully withdrawn and mucosa was carefully examined. FINDINGS: Esophagus: There was evidence of white plaques in the mid esophagus, most consistent with Jia. In addition, there was evidence of a few superficial ulcerations in the mid esophagus as well, but were not entirely consistent for a classic herpes or CMV infection. Cold forceps biopsies were taken from both the plaques and superficial ulcerations and sent for analysis for Jia/HSV/CMV. Estimated blood loss was minimal. Stomach appeared normal. Duodenum appeared normal up to the second portion. COMPLICATIONS: None. ESTIMATED BLOOD LOSS: Minimal. IMPRESSION: A 41-year-old gentleman with history of HIV, admitted with odynophagia, which is most consistent with Jia esophagitis. RECOMMENDATIONS: 1. Return to floor. 2. Diet as tolerated. 3. Continue Diflucan as per Infectious Disease. 4. Await pathology and special stains for herpes and cytomegalovirus. 5. At this time, no further inpatient GI workup will be planned. Please do not hesitate to contact me with any questions. Thank you for allowing me to participate in the care of your patient. JOB# [id number] KEVIN/NTS
[2017-01-10] MEDS: ESKALITH PO SCH (23:03)
[2017-01-10] MEDS: RisperDAL PO SCH (23:04)
[2017-01-10] MEDS: XANAX PO PRN (23:11)
--- NOTE | 2017-01-11 10:28 | Discharge Summary ---
Providers - Providers Date of Admission: 01/08/17 04:10 Date of discharge: 01/11/17 Attending physician: HALIMA CARDENAS 01/08/17 08:09 Consult to Physician [CONS] Routine Consulting Provider: CONCEPCION DELGADO Reason For Exam: Dysphagia Place consult to:: gi Notified:: y Was contact made?: Yes If yes, spoke with:: a/s Time called:: 08:55 01/08/17 15:34 Speech Therapy Evaluation and Treat [CONS] Routine Reason For Exam: Difficulty swallowing 01/09/17 00:01 Consult to Physician [CONS] Routine Consulting Provider: ABRAHAM CORTES Reason For Exam: HIV Place consult to:: Abraham Cortes Notified:: ANSWERING SERVICE Phone number called:: [phone] Was contact made?: Yes Time called:: 18:02 Comment:: CONSULT COMPLETED - DANIE Primary care physician: [employer] Hospitalization Condition: Stable Disposition: STILL A PATIENT Exam - Constitutional Vitals: Temp Pulse Resp BP Pulse Ox 97.8 F 72 16 112/72 98 01/11/17 08:00 01/11/17 08:00 01/11/17 08:00 01/11/17 08:00 01/11/17 08:00 Plan Activity: advance as tolerated, fall precautions Diet: advance as tolerated Additional Instructions: f/u [facility] 01/25/17 at 9:30a.m ; F/U Infectious disease Follow up with: FLORENTINO VALENZUELA MD [Primary Care Provider] - 3-5 Days MERISSA CABRAL MD [Staff Physician] - 7 Days Prescriptions: Fluconazole [Fluconazole ORAL SOLN] 400 mg PO DAILY 14 Days
[2017-01-11] MEDS: NON-FORMULARY PO SCH ×2 (11:02→23:20)
[2017-01-11] MEDS: DIFLUCAN 200 ML IV SCH (11:07)
[2017-01-11] MEDS: LOVENOX SUB-Q SCH (11:07)
[2017-01-11] MEDS: ZOLOFT PO SCH ×2 (11:07→23:19)
--- NOTE | 2017-01-11 11:08 | Progress Note ---
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 He describes intermittent follow with last clinic visit approximate 2 years ago in [facility]. The patient had most recently been on HAART Rxs to include Prezista, Truvada and Norvir - but he admits to poor compliance. He is unaware of his HIV viral load or T-cell counts. He was told that he would need a new "cocktail". The patient has a known documented history of george esophagitis. He presents for admission to now with a 3 day history of dysphagia and inability to take in liquids or solids. Problem list: 1. HIV/AIDS -R/O George esophagitis - recurrent -Rule out esophageal ulcers. etc. - Hx? Weight loss - Non compliant on therapy - CD4 count, HIV viral load unknown 2. Dysphasia - R/O recurrent george esophagitis versus other etiologies to include CMV, herpes, [place], [place], CVA/Lymphoma 3. GERD PLAN: 1. Will continue IV fluconazole until he is swallowing better 2. Await esophageal biopsy results 3. Await CD4, HIV viral load and HIV genotype to facilitate reinitiation of ARVs as an out patient 4. Other screening studies will be obtained as an outpatient 5. Continued supportive measures. Jagdish Austin MD [facility] Office: [phone] Subjective Date of service: 01/11/17 Principal diagnosis: + HIV, dysphagia Interval history: No new complaints. Still with some difficulty swallowing. Very sleepy. ROS: No subjective fever or chills. No nausea, vomiting or diarrhea. No shortness of breath, cough or pleuritic chest pain Objective - Exam Narrative Exam: GENERAL: Well-developed, thin male who very sleepy but arouses and follows commands. Untouched breakfast tray sitting at his bedside. HEENT: Pupils are equal reactive to light and accommodation. Conjunctiva clear. Oropharynx is normal with no evidence of oral candidiasis or pharyngitis. No mucosal ulcers seen. NECK: Supple. No enlargement of the thyroid gland. No significant cervical lymphadenopathy. No jugular venous distention at 30. LUNGS: Clear with no adventitious sounds. HEART: Regular rate. S1 and S2 are normal. There are no murmurs, gallops, clicks or rubs heard. ABDOMEN: Soft and nontender. Liver and spleen are not palpably enlarged or tender. No palpable masses. Bowel sounds are normoactive. EXTREMITIES: No rash, peripheral lymphadenopathy, clubbing or edema. SKIN: No other rash, ulcers or wounds. NEUROLOGIC: No focal findings. - Constitutional Vitals: Vital Signs Temp Pulse Resp BP Pulse Ox 97.8 F 72 16 112/72 98 01/11/17 08:00 01/11/17 08:00 01/11/17 08:00 01/11/17 08:00 01/11/17 08:00 Temperature -Last 24 Hours Temperature 97.8 F Temperature 97.6 F Temperature 98.0 F Temperature 97.5 F Temperature 97.6 F Temperature 97.6 F - Labs CBC & Chem 7: 01/09/17 05:09 01/09/17 05:09
[2017-01-11] MEDS: WELLBUTRIN XL PO SCH (12:02)
--- NOTE | 2017-01-11 13:18 | Progress Note ---
Assessment and Plan Assessment and plan: 1. Odynophagia secondary to esophageal candidiasis with ulcers-continue IV fluconazole. Follow-up with biopsy reports from EGD. ID and GI recommendations noted. For discharge when he is able to swallow better 2. Metabolic encephalopathy possibly secondary to sedative medications- supportive care. Will hold medications until he is more awake 3. HIV/AIDS-follow up with ID for further recommendations 4. DVT prophylaxis-Lovenox History Interval history: Follow-up for odynopahgia;HIV Patient is seen at the bedside; lethargic and difficult to stay awake Hospitalist Physical - Constitutional Vitals: Temp Pulse Resp BP Pulse Ox 97.8 F 72 16 112/72 98 01/11/17 08:00 01/11/17 08:00 01/11/17 08:00 01/11/17 08:00 01/11/17 08:00 General appearance: Present: no acute distress - EENT Eyes: Present: PERRL, EOM intact. Absent: scleral icterus, conjunctival injection ENT: hearing intact, clear oral mucosa, no oropharyngeal erythema, no poor dentition - Neck Neck: Present: supple, normal ROM. Absent: enlarged thyroid, masses or JVD - Respiratory Respiratory effort: normal Respiratory: bilateral: diminished, negative: rales, rhonchi, wheezing - Cardiovascular Rhythm: regular Heart Sounds: Present: S1 & S2 - Extremities Extremities: no ischemia, pulses intact, pulses symmetrical, No edema Peripheral Pulses: within normal limits - Abdominal General gastrointestinal: soft, non-tender, non-distended - Integumentary Integumentary: Present: clear - Psychiatric Psychiatric: other (unable to assess fully as he is drowsy) - Neurologic Neurologic: CNII-XII intact, moves all extremities Results - Labs CBC & Chem 7: 01/09/17 05:09 01/09/17 05:09 Labs: Laboratory Last Values WBC 5.1 K/mm3 (4.5-11.0) 01/09/17 05:09 RBC 4.36 M/mm3 (3.65-5.03) 01/09/17 05:09 Hgb 13.2 gm/dl (11.8-15.2) 01/09/17 05:09 Hct 40.6 % (35.5-45.6) 01/09/17 05:09 MCV 93 fl (84-94) 01/09/17 05:09 MCH 30 pg (28-32) 01/09/17 05:09 MCHC 33 % (32-34) 01/09/17 05:09 RDW 13.3 % (13.2-15.2) 01/09/17 05:09 Plt Count 195 K/mm3 (140-440) 01/09/17 05:09 Lymph % (Auto) 30.4 % (13.4-35.0) 01/09/17 05:09 [place] % (Auto) 13.6 % (0.0-7.3) H 01/09/17 05:09 Eos % (Auto) 3.5 % (0.0-4.3) 01/09/17 05:09 Baso % (Auto) 0.7 % (0.0-1.8) 01/09/17 05:09 Lymph # 1.5 K/mm3 (1.2-5.4) 01/09/17 05:09 [place] # 0.7 K/mm3 (0.0-0.8) 01/09/17 05:09 Eos # 0.2 K/mm3 (0.0-0.4) 01/09/17 05:09 Baso # 0.0 K/mm3 (0.0-0.1) 01/09/17 05:09 Add Manual Diff Complete 01/08/17 02:09 Total Counted 100 01/08/17 02:09 Seg Neutrophils % 51.8 % (40.0-70.0) 01/09/17 05:09 Seg Neuts % (Manual) 46.0 % (40.0-70.0) 01/08/17 02:09 Band Neutrophils % 0 % 01/08/17 02:09 Lymphocytes % (Manual) 32.0 % (13.4-35.0) 01/08/17 02:09 Reactive Lymphs % (Man) 0 % 01/08/17 02:09 Monocytes % (Manual) 19.0 % (0.0-7.3) H 01/08/17 02:09 Eosinophils % (Manual) 3.0 % (0.0-4.3) 01/08/17 02:09 Basophils % (Manual) 0 % (0.0-1.8) 01/08/17 02:09 Metamyelocytes % 0 % 01/08/17 02:09 Myelocytes % 0 % 01/08/17 02:09 Promyelocytes % 0 % 01/08/17 02:09 Blast Cells % 0 % 01/08/17 02:09 Nucleated RBC % Not Reportable 01/08/17 02:09 Seg Neutrophils # 2.6 K/mm3 (1.8-7.7) 01/09/17 05:09 Seg Neutrophils # Man 2.5 K/mm3 (1.8-7.7) 01/08/17 02:09 Band Neutrophils # 0.0 K/mm3 01/08/17 02:09 Lymphocytes # (Manual) 1.7 K/mm3 (1.2-5.4) 01/08/17 02:09 Abs React Lymphs (Man) 0.0 K/mm3 01/08/17 02:09 Monocytes # (Manual) 1.0 K/mm3 (0.0-0.8) H 01/08/17 02:09 Eosinophils # (Manual) 0.2 K/mm3 (0.0-0.4) 01/08/17 02:09 Basophils # (Manual) 0.0 K/mm3 (0.0-0.1) 01/08/17 02:09 Metamyelocytes # 0.0 K/mm3 01/08/17 02:09 Myelocytes # 0.0 K/mm3 01/08/17 02:09 Promyelocytes # 0.0 K/mm3 01/08/17 02:09 Blast Cells # 0.0 K/mm3 01/08/17 02:09 WBC Morphology Not Reportable 01/08/17 02:09 Hypersegmented Neuts Not Reportable 01/08/17 02:09 Hyposegmented Neuts Not Reportable 01/08/17 02:09 Hypogranular Neuts Not Reportable 01/08/17 02:09 Smudge Cells Not Reportable 01/08/17 02:09 Toxic Granulation Not Reportable 01/08/17 02:09 Toxic Vacuolation Not Reportable 01/08/17 02:09 Dohle Bodies Not Reportable 01/08/17 02:09 Pelger-Huet Anomaly Not Reportable 01/08/17 02:09 Alejandra Rods Not Reportable 01/08/17 02:09 Platelet Estimate Consistent w auto 01/08/17 02:09 Clumped Platelets Not Reportable 01/08/17 02:09 Plt Clumps, EDTA Not Reportable 01/08/17 02:09 Large Platelets Not Reportable 01/08/17 02:09 Giant Platelets Not Reportable 01/08/17 02:09 Platelet Satelliting Not Reportable 01/08/17 02:09 Plt Morphology Comment Not Reportable 01/08/17 02:09 RBC Morphology Normal 01/08/17 02:09 Dimorphic RBCs Not Reportable 01/08/17 02:09 Polychromasia Not Reportable 01/08/17 02:09 Hypochromasia Not Reportable 01/08/17 02:09 Poikilocytosis Not Reportable 01/08/17 02:09 Anisocytosis Not Reportable 01/08/17 02:09 Microcytosis Not Reportable 01/08/17 02:09 Macrocytosis Not Reportable 01/08/17 02:09 Spherocytes Not Reportable 01/08/17 02:09 Pappenheimer Bodies Not Reportable 01/08/17 02:09 Sickle Cells Not Reportable 01/08/17 02:09 Target Cells Not Reportable 01/08/17 02:09 Tear Drop Cells Not Reportable 01/08/17 02:09 Ovalocytes Not Reportable 01/08/17 02:09 Helmet Cells Not Reportable 01/08/17 02:09 Fu[place] Bodies Not Reportable 01/08/17 02:09 [place] Rings Not Reportable 01/08/17 02:09 [place] Cells Not Reportable 01/08/17 02:09 Bite Cells Not Reportable 01/08/17 02:09 Crenated Cell Not Reportable 01/08/17 02:09 Elliptocytes Not Reportable 01/08/17 02:09 Acanthocytes (Spur) Not Reportable 01/08/17 02:09 Rouleaux Not Reportable 01/08/17 02:09 Hemoglobin C Crystals Not Reportable 01/08/17 02:09 Schistocytes Not Reportable 01/08/17 02:09 Malaria parasites Not Reportable 01/08/17 02:09 Allen Bodies Not Reportable 01/08/17 02:09 Hem Pathologist Commnt No 01/08/17 02:09 Sodium 141 mmol/L (137-145) 01/09/17 05:09 Potassium 3.9 mmol/L (3.6-5.0) 01/09/17 05:09 Chloride 105.7 mmol/L (98-107) 01/09/17 05:09 Carbon Dioxide 23 mmol/L (22-30) 01/09/17 05:09 Anion Gap 16 mmol/L 01/09/17 05:09 BUN 8 mg/dL (9-20) L 01/09/17 05:09 Creatinine 0.9 mg/dL (0.8-1.5) 01/09/17 05:09 Estimated GFR > 60 ml/min 01/09/17 05:09 BUN/Creatinine Ratio 8.88 % 01/09/17 05:09 Glucose 99 mg/dL (75-100) 01/09/17 05:09 Calcium 8.0 mg/dL (8.4-10.2) L 01/09/17 05:09 Total Bilirubin 0.4 mg/dL (0.1-1.2) 01/09/17 05:09 AST 21 units/L (5-40) 01/09/17 05:09 ALT 18 units/L (7-56) 01/09/17 05:09 Alkaline Phosphatase 68 units/L (35-129) 01/09/17 05:09 Total Protein 6.2 g/dL (6.3-8.2) L 01/09/17 05:09 Albumin 3.3 g/dL (3.9-5) L 01/09/17 05:09 Albumin/Globulin Ratio 1.1 % 01/09/17 05:09 P EGD Esophagus: White plaques in mid-esophagus, most c/w Jia. Few superficial ulcerations, but not entirely classic for herpes or CMV. Biopsies taken from plaques and superficial ulcerations and sent for analysis for Jia/HSV/CMV. Stomach/duodenum: normal Imp: odynophagia, most likely due to Jia esophagitis.
[2017-01-11] MEDS: ESKALITH PO SCH (23:18)
[2017-01-11] MEDS: RisperDAL PO SCH (23:19)
--- NOTE | 2017-01-12 09:19 | Discharge Summary ---
Providers - Providers Date of Admission: 01/08/17 04:10 Date of discharge: 01/12/17 Attending physician: HALIMA CARDENAS 01/08/17 08:09 Consult to Physician [CONS] Routine Consulting Provider: CONCEPCION DELGADO Reason For Exam: Dysphagia Place consult to:: gi Notified:: y Was contact made?: Yes If yes, spoke with:: a/s Time called:: 08:55 01/08/17 15:34 Speech Therapy Evaluation and Treat [CONS] Routine Reason For Exam: Difficulty swallowing 01/09/17 00:01 Consult to Physician [CONS] Routine Consulting Provider: ABRAHAM CORTES Reason For Exam: HIV Place consult to:: Abraham Cortes Notified:: ANSWERING SERVICE Phone number called:: [phone] Was contact made?: Yes Time called:: 18:02 Comment:: CONSULT COMPLETED - DANIE 01/11/17 10:28 Speech Therapy Evaluation and Treat [CONS] Routine Reason For Exam: re- evaluation for dysphagia Primary care physician: SHOE REPAIRER Hospitalization Reason for admission: odynphagia; HIV/AIDS Condition: Stable Pertinent studies: EGD Esophagus: White plaques in mid-esophagus, most c/w George. Few superficial ulcerations, but not entirely classic for herpes or CMV. Biopsies taken from plaques and superficial ulcerations and sent for analysis for George/HSV/CMV. Stomach/duodenum: normal Imp: odynophagia, most likely due to George esophagitis. Procedures: EGD Hospital course: Mr. Rainey is a 15-year-old -[place] man who presented to the emergency room with difficulty and painful swallowing on a background history of HIV/ AIDS. He was started on mechanical the on IV fluconazole for possible candidal esophagitis. He was seen by the infectious disease team as well as by the lime boiler. He had EGD done which showed george as well as multiple ulcerations. Biopsies were taken and at the time of discharge results are pending. Patient was able to swallow prior to being discharged and he had improvement in his odynophagia and dysphagia. Condition at discharge-stable 32 minutes spent preparing discharge - Disposition: DISCHARGED TO HOME OR SELFCARE - Discharge Diagnoses (1) Esophageal candidiasis Status: Acute (2) Dysphagia Status: Acute Qualifiers: Dysphagia type: D (3) HIV (human immunodeficiency virus infection) Status: Acute (4) Nausea & vomiting Status: Acute Qualifiers: Vomiting type: V Vomiting Intractability: V (5) Esophageal ulceration Status: Acute Qualifiers: Esophageal ulcer bleeding: E Core Measure Documentation - Palliative Care Palliative Care/ Comfort Measures: Not Applicable - Core Measures Any of the following diagnoses?: none Exam - Constitutional Vitals: Temp Pulse Resp BP Pulse Ox 98.1 F 76 14 124/78 97 01/12/17 08:00 01/12/17 08:00 01/12/17 08:00 01/12/17 08:00 01/12/17 08:00 General appearance: Present: no acute distress - EENT Eyes: Present: PERRL, EOM intact. Absent: scleral icterus, conjunctival injection ENT: hearing intact - Neck Neck: Present: supple, normal ROM. Absent: enlarged thyroid, masses or JVD - Respiratory Respiratory effort: normal Respiratory: negative: diminished, rales, rhonchi, wheezing - Cardiovascular Rhythm: regular Heart Sounds: Present: S1 & S2. Absent: gallop - Extremities Extremities: no ischemia, pulses intact, pulses symmetrical, No edema Peripheral Pulses: within normal limits - Abdominal General gastrointestinal: Present: soft, non-tender, non-distended, normal bowel sounds Male genitourinary: Present: deferred - Rectal Rectal Exam: deferred - Integumentary Integumentary: Present: clear - Musculoskeletal Musculoskeletal: strength equal bilaterally - Psychiatric Psychiatric: appropriate mood/affect, cooperative - Neurologic Neurologic: CNII-XII intact, moves all extremities Plan Activity: advance as tolerated Diet: advance as tolerated Follow up with: FLORENTINO VALENZUELA MD [Primary Care Provider] - 3-5 Days MERISSA CABRAL MD [Staff Physician] - 7 Days Prescriptions: Fluconazole [Fluconazole ORAL SOLN] 400 mg PO DAILY 14 Days
[2017-01-12] MEDS: ZOLOFT PO SCH (10:33)
[2017-01-12] MEDS: DIFLUCAN 200 ML IV SCH (10:33)
[2017-01-12] MEDS: WELLBUTRIN XL PO SCH (10:33)
[2017-01-12] MEDS: LOVENOX SUB-Q SCH (10:34)
[2017-01-12] MEDS: NON-FORMULARY PO SCH (10:42)
--- NOTE | 2017-01-12 12:31 | Progress Note ---
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 He describes intermittent follow with last clinic visit approximate 2 years ago in [facility]. The patient had most recently been on HAART Rxs to include Prezista, Truvada and Norvir - but he admits to poor compliance. He is unaware of his HIV viral load or T-cell counts. He was told that he would need a new "cocktail". The patient has a known documented history of george esophagitis. He presents for admission to now with a 3 day history of dysphagia and inability to take in liquids or solids. Problem list: 1. HIV/AIDS -R/O George esophagitis - recurrent -Rule out esophageal ulcers. etc. - Hx? Weight loss - Non compliant on therapy - CD4 count, HIV viral load unknown 2. Dysphasia - R/O recurrent george esophagitis versus other etiologies to include CMV, herpes, [place], [place], CVA/Lymphoma 3. GERD PLAN: 1. Will continue IV fluconazole until he is swallowing better 2. Await esophageal biopsy results 3. Await CD4, HIV viral load and HIV genotype to facilitate reinitiation of ARVs as an out patient 4. Other screening studies will be obtained as an outpatient 5. Continued supportive measures. Discussed with patient's mother and if he is discharged we will see him in the office next week Jagdish Austin MD [facility] Office: [phone] Subjective Date of service: 01/12/17 Principal diagnosis: + HIV, dysphagia Interval history: No new complaints. Still with some pain on swallowing. Still sleepy but less so than yesterday ROS: No subjective fever or chills. No nausea, vomiting or diarrhea. No shortness of breath, cough or pleuritic chest pain Objective - Exam Narrative Exam: GENERAL: Well-developed, thin male who sleepy but arouses and follows commands. Sitting up at the side of his bed. HEENT: Pupils are equal reactive to light and accommodation. Conjunctiva clear. Oropharynx is normal with no evidence of oral candidiasis or pharyngitis. No mucosal ulcers seen. NECK: Supple. No enlargement of the thyroid gland. No significant cervical lymphadenopathy. No jugular venous distention at 30. LUNGS: Clear with no adventitious sounds. HEART: Regular rate. S1 and S2 are normal. There are no murmurs, gallops, clicks or rubs heard. ABDOMEN: Soft and nontender. Liver and spleen are not palpably enlarged or tender. No palpable masses. Bowel sounds are normoactive. EXTREMITIES: No rash, peripheral lymphadenopathy, clubbing or edema. SKIN: No other rash, ulcers or wounds. NEUROLOGIC: No focal findings. - Constitutional Vitals: Vital Signs Temp Pulse Resp BP Pulse Ox 98.1 F 76 14 124/78 97 01/12/17 08:00 01/12/17 08:00 01/12/17 08:00 01/12/17 08:00 01/12/17 08:00 Temperature -Last 24 Hours Temperature 98.1 F Temperature 98.1 F Temperature 98 F - Labs CBC & Chem 7: 01/09/17 05:09 01/09/17 05:09
[2017-01-12 12:40] VITALS: BP 106/72
[2017-01-13 09:25] LABS: HIV-1 RNA QN PCR 4.95 Log cps/mL (<1.30)
--- NOTE | 2017-01-18 09:08 | Query- Nutrition ---
Dear Date:_01/18/17 Palaeontologist/CDS:Rene/ Jason Wren Phone#:__[phone] Exercise your independent professional judgment when responding to query. Questions asked do not imply a particular answer is desired or expected. We greatly appreciate your clarification on this issue. Clinical Documentation States: 41 Y/O male admitted on 01/08/17 with history of HIV/AIDS not currently on any treatment, pseudo-diverticula esophagus presents with inability to swallow food or liquid for 3 days. Consult note from Dr. Guzman states that the patient appears cachectic Clinical Findings Show: Please select the most appropriate option 3 [] Mild Malnutrition [] Mild - Moderate Malnutrition [x] Moderate - Severe Malnutrition [] Severe Malnutrition Serum Albumin 2.8 to 3.4 g/dl or Pre-albumin 5 to 17 mg/dl1,2 Inadequate nutritional intake1,2,3,4 NPO > 5 days Weight loss: 5% in 1 month or 7.5% in 3 months or 10% in 6 months1, 3,4 BMI 16 to 18.4 or Weight <90% of ideal body weight1,2,3,4 Serum Albumin < 2.8 g/ dl1,2 Lymphocytes < 1500/ L2 Inadequate nutritional intake3, high stress e.g. major trauma, sepsis,pancreatitis, turk etc. Decubitus ulcers1,2, , skin breakdown2, easy hair pluckability2 Weight <80% standard for height2 Triceps skin fold <3 mm2 Mid-arm muscle circumference <15 cm2 Creatinine-height index <60% standard2 [ ] Cachexia [ ] Emaciated w/Malnutrition [ ] Other: [ ] Unable to determine [ ] Comment/Explanation: Present on Admission: [ x] Yes (Y) [ ] Clinically undeterminable (W) [ ] No (N) Please also document response in your Progress Notes and/or Discharge Summary and indicate if the condition was present on admission. MTDD
== END 2017-01-12 13:00 | disposition home or self-care (01) | DRG 974 ==
LOC: ED 14:58 → 4A 01-08 04:10 → 3A 01-08 05:37 → 2B-SURG 01-08 13:52 → 3A 01-10 21:30
PROVIDERS: ADMIT Internal Medicine; ATTEND Hospitalist
PROC: 0DB58ZX Excision of Esophagus, Via Natural or Artificial Opening Endoscopic, Diagnostic (ICD-10-PCS; principal; 2017-01-10)
DX: B37.81 Candidal esophagitis (principal); B20 Human immunodeficiency virus [HIV] disease; E43 Unspecified severe protein-calorie malnutrition; G93.41 Metabolic encephalopathy; K22.10 Ulcer of esophagus without bleeding; K22.2 Esophageal obstruction; R13.10 Dysphagia, unspecified; J02.9 Acute pharyngitis, unspecified; K21.9 Gastro-esophageal reflux disease without esophagitis; F31.9 Bipolar disorder, unspecified; Z91.19 Patient's noncompliance with other medical treatment and regimen
CPT/HCPCS: 36415; 80048; 80053; 82024; 85007; 85025; 87536; 87901; 88305; 88312; 88341; 88342; 96361; 96374; 96375; J1450; J1650; J2060; J2405; J2704; J3360; J7030; J7042; J7120

== ENCOUNTER 2019-02-14 15:01 | Emergency (ER) | payer MEDICAID ==
--- NOTE | 2019-02-14 15:10 | Emergency Department Report ---
Blank Doc - Documentation Documentation: This is a 43-year-old male that presents with priapism that started this morni ng. This initial assessment/diagnostic orders/clinical plan/treatment(s) is/are subject to change based on patient's health status, clinical progression and re- assessment by fellow clinical providers in the ED. Further treatment and workup at subsequent clinical providers discretion. Patient/guardians urged not to elope from the ED as their condition may be serious if not clinically assessed and managed. Initial orders include: 1- Patient sent to MAIN ED for further evaluation and treatment 2- labs 3- UA 4- Penile doppler US
[2019-02-14 15:32] LABS: Basophils % (Auto) 1.5 % (0.0-1.8); Eosinophils # (Auto) 0.1 K/mm3 (0.0-0.4); Eosinophils % (Auto) 2.9 % (0.0-4.3); Hemoglobin 14.4 gm/dl (11.8-15.2); Lymphocytes # (Auto) 1.1 K/mm3 (1.2-5.4); Mean Corpuscular HGB Conc 34 % (32-34); Mean Corpuscular Volume 93 fl (84-94); Monocytes # (Auto) 0.3 K/mm3 (0.0-0.8); Monocytes % (Auto) 9.2 % (0.0-7.3); Platelet Count 209 K/mm3 (140-440); Red Blood Count 4.62 M/mm3 (3.65-5.03); Red Cell Distribution Width 13.5 % (13.2-15.2)
[2019-02-14 15:47] LABS: BUN/Creatinine Ratio 7; Blood Urea Nitrogen 6 mg/dL (9-20); Calcium 8.4 mg/dL (8.4-10.2); Hemolysis Index 10
--- NOTE | 2019-02-14 17:03 | Emergency Department Report ---
HPI - General Chief Complaint: Urogenital-Male Time Seen by Provider: 02/14/19 15:05 - HPI HPI: Room 25 The patient is a 43-year-old male presenting with chief complaint priapism. The patient states he awakened this morning at 10:00 with a priapism that was painful. Patient states he attempted to masturbate to relieve it but was unsuccessful. Patient denies taking any supplements or erectile dysfunction medication. Patient denies any previous episodes of same Location: Penis Duration: Constant since 10:00 Quality: Pain Severity: Moderate Modifying factors: [see above] Context: [see above] Mode of transportation: [not driving] ED Past Medical Hx - Past Medical History Hx HIV: Yes (unknown CD4 count, viral load undetectable) Additional medical history: pseudodiverticulae, esophageal dysphagia - Surgical History Past Surgical History?: No - Family History Family history: no significant - Social History Smoking Status: Current Every Day Smoker (1/3 pack per day) Substance Use Type: None (denies illicit drug use) - Medications Home Medications: Home Medications Medication Instructions Recorded Confirmed Last Taken Type ALPRAZolam [Xanax TAB] 2 mg PO BID PRN 01/08/17 01/08/17 01/07/17 History [place] Carbonate [Eskalith] 900 mg PO QHS 01/08/17 01/08/17 01/07/17 History QUEtiapine [SEROquel] 800 mg PO BID 01/08/17 01/08/17 01/07/17 History buPROPion [Wellbutrin] 300 mg PO DAILY 01/08/17 01/08/17 01/07/17 History risperiDONE [RisperDAL] 2 mg PO QHS 01/08/17 01/08/17 Unknown History Fluconazole [Fluconazole ORAL SOLN] 400 mg PO DAILY 14 Days ml 01/11/17 Unknown Rx HYDROcodone/APAP 5-325 [[place] 1 - 2 each PO Q6HR PRN #14 tablet 02/14/19 Unknown Rx 5/325] ED Review of Systems ROS: Stated complaint: PENILE PROBLEM Other details as noted in HPI Constitutional: no symptoms reported Eyes: denies: eye pain ENT: denies: throat pain Respiratory: no symptoms reported Cardiovascular: denies: chest pain Endocrine: no symptoms reported Gastrointestinal: denies: abdominal pain Genitourinary: other (priapism) Musculoskeletal: denies: back pain Neurological: denies: headache Physical Exam - Physical Exam Vital Signs: Vital Signs 02/14/19 15:07 Temperature 98.6 F Pulse Rate 96 H Respiratory 16 Rate Blood Pressure 98/68 O2 Sat by Pulse 100 Oximetry Physical Exam: GENERAL: The patient is well-developed well-nourished male lying on stretcher appearing in mild discomfort. [] HEENT: Normocephalic. Atraumatic. Extraocular motions are intact. Patient has moist mucous membranes. NECK: Supple. Trachea midline CHEST/LUNGS: There is no respiratory distress noted. HEART/CARDIOVASCULAR: Regular. There is no tachycardia. There is no gallop rub or murmur. ABDOMEN: Abdomen is soft, nontender. Patient has normal bowel sounds. There is no abdominal distention. SKIN: There is no rash. There is no edema. There is no diaphoresis. NEURO: The patient is awake, alert, and oriented. The patient is cooperative. The patient has normal speech MUSCULOSKELETAL: There is no evidence of acute injury. ED Course Vital Signs 02/14/19 15:07 Temperature 98.6 F Pulse Rate 96 H Respiratory 16 Rate Blood Pressure 98/68 O2 Sat by Pulse 100 Oximetry - Reevaluation(s) Reevaluation #1: 02/14/19 17:23 Phenylephrine administered 02/14/19 17:29 Phenylephrine administered 02/14/19 17:35 Phenylephrine administered 02/14/19 17:40 Phenylephrine administered and aspiration of 187.1mls blood performed with 19- gauge butterfly needle. Patient tolerated well. 2 more rounds of phenylephrine were administered during aspiration. Detumescence achieved at ~18:34 Reevaluation #2: 02/14/19 19:14 Patient remains asymptomatic - Penile Procedure Consent Obtained: verbal consent Time Out Performed: No Indication: priapism management Procedural Sedation: No Sedation/Analgesia: opioids Local Anesthesia Used: Lidocaine 1% without EPI Amount of Anesthesia Used (mls): 2 (lidocaine 1% plain was mixed with bupivacaine 0.25% in a 1:1 ratio) Priapism Management: aspiration, phenylephrine injection Complications: none Patient Tolerated Procedure: well Additional Comments: 187.1 mL's of blood aspirated using 19-gauge butterfly needle. ED Medical Decision Making - Lab Data Result diagrams: 02/14/19 15:17 02/14/19 15:17 Critical Care Time: Yes Critical care time in (mins) excluding proc time.: 60 Critical care attestation.: If time is entered above; I have spent that time in minutes in the direct care of this critically ill patient, excluding procedure time. ED Disposition Clinical Impression: Priapism Disposition: DC-01 TO HOME OR SELFCARE Is pt being admited?: No Does the pt Need Aspirin: No Condition: Stable Instructions: Priapism (ED) Additional Instructions: Return to the emergency department immediately should you develop worsening symptoms, fever, inability to tolerate food or liquid or any other concerns. Prescriptions: HYDROcodone/APAP 5-325 [[place] 5/325] 1 - 2 each PO Q6HR PRN #14 tablet PRN Reason: Pain Referrals: [facility] [Other] - 3-5 Days EDWARD DEWITT MD [Staff Physician] - [facility] (Dr. Dewitt is a urologist. Please follow up with him for further evaluation) Time of Disposition: 19:15
[2019-02-14] MEDS ORDERED: MARCAINE 0.25% INFILTRATI ONE (17:05)
[2019-02-14] MEDS ORDERED: XYLOCAINE 2% INFILTRATI ONE (17:05)
[2019-02-14] MEDS ORDERED: PERCOCET 5/325 PO ONE (17:32)
[2019-02-14] MEDS ORDERED: NEO-SYNEPHRINE 1 MG, NACL P/F VIAL (10 ML) 9.9 ML IJ**NOT IV ONE (17:46)
[2019-02-14 19:40] VITALS: BP 117/67
== END 2019-02-14 19:42 | disposition home or self-care (01) ==
LOC: ED 15:01
DX: N48.30 Priapism, unspecified (principal); F17.210 Nicotine dependence, cigarettes, uncomplicated
CPT/HCPCS: 36415; 54220; 80048; 85025; 96374; 99284; J2370

== ENCOUNTER 2019-02-23 13:18 | Emergency (ER) | payer MEDICAID ==
[2019-02-23] MEDS ORDERED: MOTRIN PO ONE ×2 (13:43→13:44)
--- NOTE | 2019-02-23 13:44 | Emergency Department Report ---
Chief Complaint: Urogenital-Male Stated Complaint: PENIS SWELLING/PAIN Time Seen by Provider: 02/23/19 13:39 - HPI History of Present Illness: This is a 43 y.o. male that presents with a painful erect penis since awaking this morning. He only took seroquel last night. Patient reports an episode previously after taking seroquel. - Exam Vital Signs: Vital Signs 02/23/19 13:33 Temperature 98.4 F Pulse Rate 122 H Respiratory 16 Rate Blood Pressure 132/86 O2 Sat by Pulse 100 Oximetry MSE screening note: Focused history and physical exam performed. Due to findings the following was ordered: Given ibuprofen 600 mg po once. Main ED for further evaluation. ED Disposition for MSE Condition: Stable
[2019-02-23] MEDS ORDERED: DILAUDID IV ONE ×2 (15:18→15:49)
[2019-02-23] MEDS ORDERED: XYLOCAINE 1% 20 mL INFILTRATI ONE (15:19)
[2019-02-23] MEDS ORDERED: NEO-SYNEPHRINE 1 MG, NACL P/F VIAL (10 ML) 9.9 ML IJ**NOT IV ONE (15:19)
--- NOTE | 2019-02-23 15:47 | Emergency Department Report ---
ED Male HPI - General Chief complaint: Urogenital-Male Stated complaint: PENIS SWELLING/PAIN Time Seen by Provider: 02/23/19 13:39 Source: patient Mode of arrival: Ambulatory Limitations: No Limitations - History of Present Illness Initial comments: 43-year-old male presents to the ED last complaining of priapism since 9 AM this morning. Patient has psych history and takes Seroquel, likely the cause of his priapism. The patient was seen last week in the ED for same. MD Complaint: other (priapism) -: hour(s) (6), This morning Location: penis Severity: severe Consistency: constant Improves with: none Worsens with: none denies other symptoms - Related Data Home Medications Medication Instructions Recorded Confirmed Last Taken ALPRAZolam [Xanax TAB] 2 mg PO BID PRN 01/08/17 01/08/17 01/07/17 [place] Carbonate [Eskalith] 900 mg PO QHS 01/08/17 01/08/17 01/07/17 QUEtiapine [SEROquel] 800 mg PO BID 01/08/17 01/08/17 01/07/17 buPROPion [Wellbutrin] 300 mg PO DAILY 01/08/17 01/08/17 01/07/17 risperiDONE [RisperDAL] 2 mg PO QHS 01/08/17 01/08/17 Unknown Previous Rx's Medication Instructions Recorded Last Taken Type Fluconazole [Fluconazole ORAL SOLN] 400 mg PO DAILY 14 Days ml 01/11/17 Unknown Rx HYDROcodone/APAP 5-325 [[place] 1 tab PO Q6HR PRN #7 tablet 02/23/19 Unknown Rx 5-325 mg TAB] Allergies Allergy/AdvReac Type Severity Reaction Status Date / Time No Known Allergies Allergy Verified 02/23/19 13:21 ED Review of Systems ROS: Stated complaint: PENIS SWELLING/PAIN Other details as noted in HPI Comment: All other systems reviewed and negative Genitourinary: other (reports priapism) ED Past Medical Hx - Past Medical History Hx Congestive Heart Failure: No Hx Diabetes: No Hx Asthma: No Hx COPD: No Hx HIV: Yes (unknown CD4 count, viral load undetectable) Additional medical history: pseudodiverticulae, esophageal dysphagia - Social History Smoking Status: Current Every Day Smoker Substance Use Type: None - Medications Home Medications: Home Medications Medication Instructions Recorded Confirmed Last Taken Type ALPRAZolam [Xanax TAB] 2 mg PO BID PRN 01/08/17 01/08/17 01/07/17 History [place] Carbonate [Eskalith] 900 mg PO QHS 01/08/17 01/08/17 01/07/17 History QUEtiapine [SEROquel] 800 mg PO BID 01/08/17 01/08/17 01/07/17 History buPROPion [Wellbutrin] 300 mg PO DAILY 01/08/17 01/08/17 01/07/17 History risperiDONE [RisperDAL] 2 mg PO QHS 01/08/17 01/08/17 Unknown History Fluconazole [Fluconazole ORAL SOLN] 400 mg PO DAILY 14 Days ml 01/11/17 Unknown Rx HYDROcodone/APAP 5-325 [[place] 1 tab PO Q6HR PRN #7 tablet 02/23/19 Unknown Rx 5-325 mg TAB] ED Physical Exam - General Limitations: No Limitations General appearance: alert, in no apparent distress - Head Head exam: Present: atraumatic, normocephalic - Eye Eye exam: Present: normal appearance - ENT ENT exam: Present: mucous membranes moist - Neck Neck exam: Present: normal inspection - Respiratory Respiratory exam: Present: normal lung sounds bilaterally. Absent: respiratory distress - Cardiovascular Cardiovascular Exam: Present: regular rate, tachycardia - GI/Abdominal GI/Abdominal exam: Present: soft. Absent: distended, tenderness - exam: Present: other (priapism present) - Extremities Exam Extremities exam: Present: normal inspection - Neurological Exam Neurological exam: Present: alert, oriented X3 - Psychiatric Psychiatric exam: Present: normal affect, normal mood - Skin Skin exam: Present: warm, dry, intact, normal color ED Course Vital Signs 02/23/19 02/23/19 13:33 18:01 Temperature 98.4 F 98.3 F Pulse Rate 122 H 75 Respiratory 16 17 Rate Blood Pressure 132/86 Blood Pressure 118/81 [Left] O2 Sat by Pulse 100 97 Oximetry - Reevaluation(s) Reevaluation #1: 02/23/19 16:45 30 cc blood aspirated. Partial detumescence achieved. Phenylephrine injected, compression applied. Will re-assess. Reevaluation #2: 02/23/19 17:00 Detumescence achieved. Pt states erection resolved. Reevaluation #3: 02/23/19 18:05 Pt remains stable. Observed x 1 hr in ED following detumescence. Pt remains detumesced. Will d/c at this time - Penile Procedure Consent Obtained: verbal consent Indication: priapism management Procedural Sedation: No Sedation/Analgesia: opioids (dilaudid 2 mg) Local Anesthesia Used: Penile Nerve Block Amount of Anesthesia Used (mls): 5 Priapism Management: aspiration (45 mL), phenylephrine injection Complications: none Patient Tolerated Procedure: well Critical care attestation.: If time is entered above; I have spent that time in minutes in the direct care of this critically ill patient, excluding procedure time. ED Disposition Clinical Impression: Priapism Disposition: TO HOME OR SELFCARE Is pt being admited?: No Condition: Stable Instructions: Priapism (ED) Prescriptions: HYDROcodone/APAP 5-325 [[place] 5-325 mg TAB] 1 tab PO Q6HR PRN #7 tablet PRN Reason: Pain Referrals: PRIMARY CARE, [Primary Care Provider] - 3-5 Days EDWARD ARAGON MD [Staff Physician] - 3-5 Days Time of Disposition: 18:07
[2019-02-23 18:02] VITALS: BP 118/81
== END 2019-02-23 18:50 | disposition home or self-care (01) ==
LOC: ED 13:18
DX: N48.30 Priapism, unspecified (principal); F17.200 Nicotine dependence, unspecified, uncomplicated
CPT/HCPCS: 54220; 99283; J1170; J2370